=== PATIENT | female | born 1945 | race Caucasian/White ===

== ENCOUNTER 2020-08-28 07:46 | Outpatient (REF) | payer MEDICARE, SELFPAY ==
--- NOTE | 2020-08-28 07:51 | MM_ITS ---
EXAMINATION: MM SCREENING DIGITAL BREAST TOMOSYNTHESIS, BILATERAL CLINICAL INFORMATION: Screening. Asymptomatic. The lifetime risk of breast cancer based on the Tyrer-Cuzick Model is 2%. COMPARISON: Mammography: 08/23/2019, 07/26/2018, 07/03/2017 TECHNIQUE: Digital breast tomosynthesis is performed in both the craniocaudal and mediolateral oblique views along with computer-aided detection (CAD). Synthesized 2D images are generated from the tomosynthesis. FINDINGS: There are scattered areas of fibroglandular density (ACR BI-RADS breast composition Category b). There are no significant masses, abnormal calcifications, or other abnormalities. Parenchymal pattern is similar to prior exams. No developing density. No significant changes. IMPRESSION: No mammographic evidence of malignancy. ASSESSMENT: BI-RADS 1: Negative RECOMMENDATION: Routine annual mammography screening. This patient's information was entered into a reminder system with a target due date for their next mammogram.
== END 2020-08-28 07:47 | disposition home or self-care (01) ==
LOC: HO.MAMMO 07:46
PROVIDERS: PCP Internal Medicine; Visit Provider Internal Medicine
DX: Z12.31 Encounter for screening mammogram for malignant neoplasm of breast (principal)
CPT/HCPCS: 77063; 77067; 78014

== ENCOUNTER 2020-11-02 07:36 | Outpatient (REF) | payer MEDICARE, SELFPAY ==
[2020-11-02 10:54] LABS: Alanine Aminotransferase 22 U/L (0-31); Albumin Level 4.3 g/dL (3.5-5.0); Alkaline Phosphatase 66 U/L (39-117); Anion Gap 14 (12-20); Aspartate Amino Transferase 21 U/L (5-31); Bilirubin Total 0.4 mg/dL (0.0-1.0); Blood Urea Nitrogen 23 mg/dL (9-16); Calcium 8.8 mg/dL (8.4-10.2); Carbon Dioxide 26 mmol/L (22-29); Chloride 101 mmol/L (96-108); Cholesterol 181 mg/dL; Estimated Glomerular Filt Rate > 60; Glucose Fasting 109 mg/dL (60-99); HDL Cholesterol 45 mg/dL; LDL Cholesterol Calculated 90 mg/dl; Potassium 3.4 mmol/l (3.3-5.1); Sodium 138 mmol/L (135-145); Triglycerides 230 mg/dL
[2020-11-02 11:16] LABS: TSH reflex Free T4 1.47 mIU/mL (0.32-4.0)
== END 2020-11-02 07:37 | disposition home or self-care (01) ==
LOC: HO.10HDL 07:36
PROVIDERS: PCP Internal Medicine; Visit Provider Internal Medicine
DX: E78.00 Pure hypercholesterolemia, unspecified (principal); E55.9 Vitamin D deficiency, unspecified; E03.9 Hypothyroidism, unspecified
CPT/HCPCS: 80053; 80061; 82306; 84443

== ENCOUNTER 2020-12-23 | Outpatient (REF) | payer MEDICARE, SELFPAY | END 2020-12-23 00:01 | disposition home or self-care (01) | LOC: HO.VC | PROVIDERS: Visit Provider Internal Medicine | DX: Z23 Encounter for immunization (principal) | CPT/HCPCS: 0011A ==

== ENCOUNTER 2021-01-19 | Outpatient (REF) | payer MEDICARE, SELFPAY | END 2021-01-19 00:01 | disposition home or self-care (01) | LOC: HO.VC | PROVIDERS: Visit Provider Internal Medicine | DX: Z23 Encounter for immunization (principal) | CPT/HCPCS: 0012A ==

== ENCOUNTER 2021-05-18 07:31 | Outpatient (REF) | payer MEDICARE, SELFPAY ==
[2021-05-18 11:04] LABS: Alanine Aminotransferase 20 U/L (0-31); Albumin Level 4.4 g/dL (3.5-5.0); Alkaline Phosphatase 59 U/L (39-117); Anion Gap 13 (12-20); Aspartate Amino Transferase 23 U/L (5-31); Bilirubin Total 0.5 mg/dL (0.0-1.0); Blood Urea Nitrogen 20 mg/dL (9-16); Calcium 9.1 mg/dL (8.4-10.2); Carbon Dioxide 28 mmol/L (22-29); Chloride 103 mmol/L (96-108); Cholesterol 178 mg/dL; Estimated Glomerular Filt Rate > 60; Glucose Fasting 100 mg/dL (60-99); HDL Cholesterol 51 mg/dL; LDL Cholesterol Calculated 104 mg/dl; Potassium 3.8 mmol/L (3.3-5.1); Sodium 140 mmol/L (135-145); Triglycerides 118 mg/dL
== END 2021-05-18 07:32 | disposition home or self-care (01) ==
LOC: HO.10HDL 07:31
PROVIDERS: Visit Provider Internal Medicine
DX: E78.5 Hyperlipidemia, unspecified (principal); I10 Essential (primary) hypertension
CPT/HCPCS: 36415; 80053; 80061

== ENCOUNTER 2021-06-21 11:40 | Outpatient (REF) | payer MEDICARE, SELFPAY ==
--- NOTE | ~2021-06-21 | XR_ITS ---
EXAMINATION: XR CHEST CLINICAL INFORMATION: Cough COMPARISON: Previous chest and left rib x-rays January 2020 TECHNIQUE: 2 views of the chest were obtained. FINDINGS: The cardiac and mediastinal contours are normal. The lungs are clear. There is no pleural effusion or pneumothorax. There are degenerative changes of the spine. XR/XR chest 2V IMPRESSION: No evidence for acute disease in the chest.
== END 2021-06-21 11:41 | disposition home or self-care (01) ==
LOC: HO.XRAY 11:40
PROVIDERS: PCP Internal Medicine; Visit Provider Internal Medicine
DX: R05 Cough (principal)
CPT/HCPCS: 71046

== ENCOUNTER 2021-08-19 09:49 | Outpatient (REF) | payer MEDICARE, SELFPAY ==
--- NOTE | ~2021-08-19 | XR_ITS ---
EXAMINATION: XR ABDOMEN KUB CLINICAL INDICATION: Right flank pain. COMPARISON: None TECHNIQUE: AP view of the abdomen. FINDINGS: No convincing evidence of radiopaque calculus overlying the right kidney. There are numerous pelvic calcifications which may represent phleboliths. Because of this a distal ureteral calculus cannot be excluded. The bowel pattern is nonobstructing. Mild colonic stool. XR/XR KUB IMPRESSION: No radiopaque calculus is seen overlying the kidneys. Numerous pelvic calcifications are noted described above.
== END 2021-08-19 09:50 | disposition home or self-care (01) ==
LOC: HO.XRAY 09:49
PROVIDERS: PCP Internal Medicine; Visit Provider Internal Medicine
DX: N20.0 Calculus of kidney (principal)
CPT/HCPCS: 74018

== ENCOUNTER 2021-09-09 07:55 | Outpatient (REF) | payer MEDICARE, SELFPAY ==
--- NOTE | ~2021-09-09 | MM_ITS ---
EXAMINATION: MM SCREENING DIGITAL BREAST TOMOSYNTHESIS, BILATERAL CLINICAL INFORMATION: Screening. Asymptomatic. The lifetime risk of breast cancer based on the Tyrer-Cuzick Model is 3%. COMPARISON: Mammography: 08/28/2020, 08/23/2019, 07/26/2018, 07/03/2017 TECHNIQUE: Digital breast tomosynthesis is performed in both the craniocaudal and mediolateral oblique views along with computer-aided detection (CAD). Synthesized 2D images are generated from the tomosynthesis. FINDINGS: There are scattered areas of fibroglandular density (ACR BI-RADS breast composition Category b). Breast tissue composition borders on heterogeneously dense. There are scattered bilateral stable fibroglandular asymmetries. No developing density. No architectural abnormality or interval abnormal calcifications. The axilla are unremarkable. No significant changes. MM/MM tomosynthesis screening BI IMPRESSION: No significant changes from prior studies. ASSESSMENT: BI-RADS 2: Benign RECOMMENDATION: Routine annual mammography screening. This patient's information was entered into a reminder system with a target due date for their next mammogram.
== END 2021-09-09 07:56 | disposition home or self-care (01) ==
LOC: HO.MAMMO 07:55
PROVIDERS: Visit Provider Internal Medicine
DX: Z12.31 Encounter for screening mammogram for malignant neoplasm of breast (principal)
CPT/HCPCS: 77063; 77067

== ENCOUNTER 2021-09-28 08:05 | Outpatient (REF) | payer MEDICARE, SELFPAY ==
[2021-09-28 10:53] LABS: Free T4 (Free Thyroxine) 1.12 ng/dL (0.71-1.85); Thyroid Stimulating Hormone 1.09 uIU/mL (0.32-4.0)
== END 2021-09-28 08:06 | disposition home or self-care (01) ==
LOC: HO.10HDL 08:05
PROVIDERS: Visit Provider Nurse Practitioner Gerontology
DX: E03.9 Hypothyroidism, unspecified (principal)
CPT/HCPCS: 36415; 84439; 84443

== ENCOUNTER → 2021-10-07 14:11 | Outpatient (BNVA) | payer MEDICARE, SELFPAY | PROVIDERS: PCP Internal Medicine; Visit Provider Internal Medicine | DX: E03.9 Hypothyroidism, unspecified (principal); E04.2 Nontoxic multinodular goiter; E55.9 Vitamin D deficiency, unspecified | CPT/HCPCS: 99212 ==

== ENCOUNTER 2021-12-29 07:42 | Outpatient (REF) | payer MEDICARE, SELFPAY ==
[2021-12-29 12:37] LABS: Free T4 (Free Thyroxine) 1.11 ng/dL (0.71-1.85); Thyroid Stimulating Hormone 1.33 uIU/mL (0.32-4.0); Vitamin D 25-OH Total 40.1 ng/mL (>30)
[2021-12-29 13:02] LABS: Alanine Aminotransferase 21 U/L (0-31); Albumin Level 4.2 g/dL (3.5-5.0); Alkaline Phosphatase 68 U/L (39-117); Anion Gap 12 (12-20); Aspartate Amino Transferase 24 U/L (5-31); Bilirubin Total 1.2 mg/dL (0.0-1.0); Carbon Dioxide 29 mmol/L (22-29); Chloride 102 mmol/L (96-108); Cholesterol 169 mg/dL; Estimated Glomerular Filt Rate > 60; Glucose Fasting 106 mg/dL (60-99); HDL Cholesterol 42 mg/dL; LDL Cholesterol Calculated 98 mg/dl; Potassium 3.6 mmol/L (3.3-5.1); Sodium 139 mmol/L (135-145); Triglycerides 146 mg/dL
[2021-12-29 15:02] LABS: Blood Urea Nitrogen 15 mg/dL (9-16); Calcium 9.9 mg/dL (8.4-10.2)
== END 2021-12-29 07:43 | disposition home or self-care (01) ==
LOC: HO.10HDL 07:42
PROVIDERS: Absent Provider Internal Medicine; Visit Provider Internal Medicine
DX: E03.9 Hypothyroidism, unspecified (principal); E04.2 Nontoxic multinodular goiter; I10 Essential (primary) hypertension; E78.5 Hyperlipidemia, unspecified; E55.9 Vitamin D deficiency, unspecified
CPT/HCPCS: 36415; 80053; 80061; 82306; 84439; 84443

== ENCOUNTER 2022-02-09 15:06 | Outpatient (REF) | payer MEDICARE, SELFPAY ==
--- NOTE | ~2022-02-09 | US_ITS ---
EXAMINATION: US THYROID CLINICAL INFORMATION: Nontoxic multinodular goiter. COMPARISON: Thyroid ultrasound 07/22/2020 and 07/02/2019. Ultrasound biopsy thyroid FNA 01/04/2018. TECHNIQUE: Linear transducer grayscale and color Doppler examination with attention to the region of the thyroid. FINDINGS: SIZE: Measurements of the solitary right thyroid lobe and nodules are given in sagittal, anteroposterior and transverse dimensions respectively. Right Thyroid Lobe: 4.3 x 1.6 x 1.5 cm, volume 5.3 mL. Previously 5.0 x 2.0 x 1.3 cm, volume 6.6 mL. Parenchyma: The gland echotexture is heterogeneous. Thyroid vascularity is normal. Left Thyroid Lobe: Surgically absent. Isthmus: 0.5 cm in maximum AP dimension. Previously 0.5 cm. Estimated total number of nodules greater than or equal to 1 cm: 2. 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 Location: Right superior. Size: 1.1 x 0.5 x 0.6 cm, volume 0.2 mL. Previously: 1.1 x 1.1 x 1.0 cm, volume 0.6 mL. Nodule characteristics: Composition: Solid (2). Echogenicity: Isoechoic (1). Shape: Not taller than wide (0). Margins: Smooth (0). Echogenic Foci: None (0). ACR TI-RADS total points: 3 ACR TI-RADS category: 3 Significant change in size (>/= 20% in 2 dimensions and minimal increase of 2 mm or 50% or greater increase in volume): No. Decreased in size since 2019. Change in features: No Change in ACR TI-RADS risk category: No 2. Location: Right superior. Size: 0.5 x 0.5 x 0.7 cm, volume 0.1 mL. Previously: 0.6 x 0.8 x 0.6 cm, volume 0.2 mL. Nodule characteristics: Composition: Solid (2). Echogenicity: Isoechoic (1). Shape: Not taller than wide (0). Margins: Smooth (0). Echogenic Foci: None (0). ACR TI-RADS total points: 3 ACR TI-RADS category: 3 Significant change in size (>/= 20% in 2 dimensions and minimal increase of 2 mm or 50% or greater increase in volume): No Change in features: No Change in ACR TI-RADS risk category: No 3. Location: Right inferior. Size: 2.0 x 1.2 x 1.5 cm, volume 1.9 mL. Previously: 2.5 x 1.2 x 1.0 cm, volume 1.5 mL on 07/22/2020 and 2.0 x 1.5 x 1.5 cm on 07/02/2019.. Nodule characteristics: Composition: Solid (2). Echogenicity: Hypoechoic (2). Shape: Not taller than wide (0). Margins: Smooth (0). Echogenic Foci: None (0). ACR TI-RADS total points: 4 ACR TI-RADS category: 4 Significant change in size (>/= 20% in 2 dimensions and minimal increase of 2 mm or 50% or greater increase in volume): No Change in features: No Change in ACR TI-RADS risk category: No NODES: No lymphadenopathy is seen in the tissue surrounding the thyroid gland. US/US thyroid IMPRESSION: * There are 3 thyroid nodules, largest measuring 2.0 cm within the lower pole of the RIGHT thyroid gland is stable if not decreased in size since 2017, and previously biopsied 2016 and 2017. * There are no nodules meeting ACR criteria for FNA, or continued surveillance at this time. ACR TI-RADS RECOMMENDATION REFERENCE: Ultrasound-guided fine-needle aspiration, followup ultrasound, no further follow up. * TR1 (0 point) and TR 2 (2 points): No FNA or follow up * TR3 (3 points): FNA if more than or equal to 2.5 cm in maximum dimension, followup ultrasound in 1, 3 and 5 years if 1.5 to 2.4 cm in maximum dimension. * TR4 (4-6 points): FNA if more than or equal to 1.5 cm in maximum dimension, followup ultrasound in 1, 2, 3 and 5 years if 1 to 1.4 cm in maximum dimension. * TR5 (more than or equal to 7 points): FNA if more than or equal to 1 cm in maximum dimension, followup ultrasound every year for 5 years if 0.5 to 0.9 cm in maximum dimension. * TR3, TR4 or TR5 nodules that are below the size threshold for follow up receive no follow up.
== END 2022-02-09 15:07 | disposition home or self-care (01) ==
LOC: HO.US 15:06
PROVIDERS: Visit Provider Internal Medicine
DX: E04.2 Nontoxic multinodular goiter (principal)
CPT/HCPCS: 76536

== ENCOUNTER → 2022-04-14 08:21 | Outpatient (BNVA) | payer MEDICARE, SELFPAY | PROVIDERS: PCP Internal Medicine; Visit Provider Internal Medicine | DX: E03.9 Hypothyroidism, unspecified (principal); E04.2 Nontoxic multinodular goiter; E55.9 Vitamin D deficiency, unspecified | CPT/HCPCS: Q3014 ==

== ENCOUNTER 2022-05-10 07:32 | Outpatient (REF) | payer MEDICARE, SELFPAY ==
[2022-05-10 09:47] LABS: Free T4 (Free Thyroxine) 1.19 ng/dL (0.71-1.85); Vitamin D 25-OH Total 40.9 ng/mL (>30)
== END 2022-05-10 07:33 | disposition home or self-care (01) ==
LOC: HO.10HDL 07:32
PROVIDERS: Absent Provider Internal Medicine; Visit Provider Internal Medicine
DX: E03.9 Hypothyroidism, unspecified (principal); E04.2 Nontoxic multinodular goiter; E55.9 Vitamin D deficiency, unspecified
CPT/HCPCS: 36415; 82306; 84439; 84443

== ENCOUNTER → 2022-08-02 12:19 | Outpatient (BNVA) | payer MEDICARE, SELFPAY | PROVIDERS: PCP Internal Medicine; Visit Provider Orthopaedic Surgery | DX: G56.02 Carpal tunnel syndrome, left upper limb (principal); Z98.890 Other specified postprocedural states | CPT/HCPCS: 99202 ==

== ENCOUNTER 2022-08-08 10:13 | Day surgery (SDC) | payer MEDICARE, SELFPAY ==
[2022-08-08 11:15] VITALS: BMI 25.2
[2022-08-08 11:17] VITALS: BP 152/89; PULSE 89; RESP 16; TEMP 36.5; O2SAT 96
--- NOTE | 2022-08-08 13:19 | MHC.SHP ---
Pre-Procedural Eval Section A Date of Service: 08/08/22 The patient is an INPATIENT: No Changes since office visit: No Cold of Flu in the past 2 weeks, No New Medical Problems, No Changes in Medication and No Patient answered all questions The History & Physical has been completed within 30 days and I have reviewed it.: Yes Section B Chief Complaint: carpal tunnel Allergies: Allergies Allergy/AdvReac Type Severity Reaction Status Date / Time atropine [Lomotil] Allergy Intermediate vomiting Verified 08/02/22 12:37 codeine [CODEINE] Allergy Intermediate NAUSEA & Verified 08/02/22 12:37 VOMITING diphenoxylate [Lomotil] Allergy Intermediate vomiting Verified 08/02/22 12:37 Erythromycin Allergy Intermediate swelling, Verified 08/02/22 12:37 trouble breathing meperidine [From DEMEROL] Allergy Intermediate NAUSEA & Verified 05/12/22 14:59 VOMITING nabumetone Allergy Intermediate unknown Verified 08/02/22 12:37 oxycodone [Percocet] Allergy Intermediate vomiting Verified 08/02/22 12:37 Plan I have reviewed the history and physical and performed a pertinent physical examination on my patient. No changes have occurred unless specified.
--- NOTE | 2022-08-08 13:19 | W.PM.OPN ---
Operative Note Operative Note Date of Service: 08/08/22 Narrative: Preop diagnosis: 1. Left Carpal tunnel syndrome Postop diagnosis: same Procedure: 1. Left Carpal tunnel release Surgeon: Angelia Campbell MD Anesthesia: local block using 1% lidocaine with epinephrine Findings: Thickened transverse carpal ligament. EBL: Less than 5 mL Specimens: None Complications: None Disposition: Brought to recovery room in stable condition Plan: Follow-up for 10-14 days for wound check and suture removal Indications: The patient is a 76 years old, with left carpal tunnel syndrome that has been unresponsive to nonoperative management. The risks and benefits of operative treatment including but not limited to risk of damage to blood vessels, nerves, tendons, infection, persistent pain, persistent symptoms, or possible need for additional surgery were discussed with the patient and the patient wishes to proceed with surgery. Procedure: Once consent was obtained a local block was performed using a combination of 1% lidocaine with epinephrine. The patient was then brought back to the operating suite and placed on the operative table in supine position. A tourniquet was applied to the proximal aspect of the left upper extremity and the limb was prepped and draped in a standard surgical fashion. Once assured that we had a good block, a 2.0 cm longitudinal incision was made centered over the carpal tunnel. The incision was made through the skin to the subcutaneous tissues using a #15 blade. Dissection was made down to the level of the transverse carpal ligament with care being taken to protect the palmar cutaneous nerve. Once the transverse carpal ligament was clearly visualized, a longitudinal incision was made in the transverse carpal ligament 1st using a #15 blade, then using tenotomy scissors under direct visualization. Care was taken to look for and protect the motor branch of the median nerve when seen in this area. Once satisfied with our carpal tunnel release the wound was copiously irrigated with normal saline and hemostasis was obtained with a brief period of local pressure. The skin edges were reapproximated with some 5.0 nylon suture material and a sterile dressing was applied. The patient appears to have tolerated the procedure well and with no complications. All digits were well vascularized at the conclusion of the case.
== END 2022-08-08 13:37 | disposition home or self-care (01) ==
PROVIDERS: PCP Internal Medicine; Visit Provider Orthopaedic Surgery
PROC: (CPT 64721; principal; 2022-08-08 11:20)
DX: G56.02 Carpal tunnel syndrome, left upper limb (principal); M79.642 Pain in left hand; R20.0 Anesthesia of skin; I10 Essential (primary) hypertension; E03.9 Hypothyroidism, unspecified; E78.5 Hyperlipidemia, unspecified; Z79.899 Other long term (current) drug therapy; Z88.1 Allergy status to other antibiotic agents; Z88.8 Allergy status to other drugs, medicaments and biological substances; Z87.891 Personal history of nicotine dependence; Z98.890 Other specified postprocedural states
CPT/HCPCS: 64721; J0171

== ENCOUNTER → 2022-08-24 09:08 | Outpatient (BNVA) | payer MEDICARE, SELFPAY | PROVIDERS: PCP Internal Medicine; Visit Provider Orthopaedic Surgery | DX: Z09 Encounter for follow-up examination after completed treatment for conditions other than malignant neoplasm (principal); Z98.890 Other specified postprocedural states | CPT/HCPCS: 99212 ==

== ENCOUNTER 2022-09-12 09:50 | Outpatient (REF) | payer MEDICARE, SELFPAY ==
--- NOTE | ~2022-09-12 | US_ITS ---
EXAMINATION: US EXTRACRANIAL CAROTID DUPLEX, BILATERAL CLINICAL INFORMATION: Carotid stenosis COMPARISON: None TECHNIQUE: Real-time ultrasound and Doppler techniques (integrating B-mode 2-D vascular images, Doppler spectral analysis and color-flow Doppler imaging) were utilized to interrogate the extracranial carotid arteries, the vertebral arteries and proximal subclavian arteries bilaterally. The degree of stenosis is determined by criteria similar to NASCET. FINDINGS: Right Side: 1. There is no significant atherosclerotic plaque seen in the bifurcation/proximal ICA region. 2. The common carotid artery PSV proximally is 109 cm/s and distally 94.6 cm/s. 3. The proximal internal carotid artery velocities are 71.3 cm/s systolic and 25.8 cm/s diastolic. 4. The proximal external carotid artery PSV is 114 cm/s. 5. The vertebral artery shows antegrade flow. 6. The subclavian artery waveforms are normal. Left Side: 1. There is minimal atherosclerotic plaque seen in the bifurcation/proximal ICA region. 2. The common carotid artery PSV proximally is 122 cm/s and distally 88.2 cm/s. 3. The proximal internal carotid artery velocities are 78.5 cm/s systolic and 23.6 cm/s diastolic. 4. The proximal external carotid artery PSV is 96.4 cm/s. 5. The vertebral artery shows antegrade flow. 6. The subclavian artery waveforms are normal. US/US carotid duplex BI IMPRESSION: 1. RIGHT: Normal right internal carotid artery without atherosclerotic plaque or hemodynamically significant stenosis. 2. LEFT: Minimal, non-hemodynamically significant stenosis of the proximal left internal carotid artery corresponding to a 0-49% stenosis by velocity criteria.
== END 2022-09-12 09:51 | disposition home or self-care (01) ==
LOC: HO.US 09:50
PROVIDERS: Visit Provider Psychiatry & Neurology Neurology
DX: E04.2 Nontoxic multinodular goiter (principal); I67.89 Other cerebrovascular disease
CPT/HCPCS: 93880

== ENCOUNTER 2022-09-15 07:51 | Outpatient (REF) | payer MEDICARE, SELFPAY ==
--- NOTE | ~2022-09-15 | MM_ITS ---
EXAMINATION: MM SCREENING DIGITAL BREAST TOMOSYNTHESIS, BILATERAL CLINICAL INFORMATION: Screening. Asymptomatic. The lifetime risk of breast cancer based on the Tyrer-Cuzick Model is 2%. COMPARISON: Mammography: September 09, 2021 and studies dating back to June 29, 2016 TECHNIQUE: Digital breast tomosynthesis is performed in both the craniocaudal and mediolateral oblique views along with computer-aided detection (CAD). Synthesized 2D images are generated from the tomosynthesis. FINDINGS: There are scattered areas of fibroglandular density (ACR BI-RADS breast composition Category b). There are no significant masses, abnormal calcifications, or other abnormalities. MM/MM tomosynthesis screening BI IMPRESSION: No significant changes ASSESSMENT: BI-RADS 1: Negative RECOMMENDATION: Routine annual mammography screening. This patient's information was entered into a reminder system with a target due date for their next mammogram.
== END 2022-09-15 07:52 | disposition home or self-care (01) ==
LOC: HO.MAMMO 07:51
PROVIDERS: PCP Internal Medicine; Visit Provider Internal Medicine
DX: Z12.31 Encounter for screening mammogram for malignant neoplasm of breast (principal)
CPT/HCPCS: 77063; 77067

== ENCOUNTER 2022-11-28 08:52 | Outpatient (REF) | payer MEDICARE, SELFPAY ==
--- NOTE | ~2022-11-28 | XR_ITS ---
EXAMINATION: XR THORACOLUMBAR SPINE CLINICAL INFORMATION: Mid back pain COMPARISON: None TECHNIQUE: 3 views. FINDINGS: There is normal thoracic kyphosis. The vertebral heights, alignment and disc heights are normal. No visible acute fracture, dislocation or lytic process seen. Vertical striations are visualized, L1 vertebra likely hemangioma. There is mild ventral spondylosis mid dorsal spine. The paravertebral soft tissues are normal. XR/XR thoracic spine 2V IMPRESSION: Mild ventral dorsal spine spondylosis. Otherwise unremarkable.
[2022-11-28 09:55] LABS: Alanine Aminotransferase 19 U/L (0-31); Albumin Level 4.4 g/dL (3.5-5.0); Alkaline Phosphatase 67 U/L (39-117); Anion Gap 12 (12-20); Aspartate Amino Transferase 27 U/L (5-31); Bilirubin Total 0.7 mg/dL (0.0-1.0); Blood Urea Nitrogen 18 mg/dL (9-16); Calcium 9.8 mg/dL (8.4-10.2); Carbon Dioxide 29 mmol/L (22-29); Chloride 103 mmol/L (96-108); Cholesterol 182 mg/dL; Estimated Glomerular Filt Rate > 60; Glucose Fasting 96 mg/dL (60-99); HDL Cholesterol 48 mg/dL; LDL Cholesterol Calculated 97 mg/dl; Potassium 3.9 mmol/L (3.3-5.1); Sodium 140 mmol/L (135-145); Total Protein 7.2 g/dL (6.5-8.0); Triglycerides 186 mg/dL
[2022-11-28 10:14] LABS: Vitamin D 25-OH Total 44.3 ng/mL (>30)
== END 2022-11-28 08:53 | disposition home or self-care (01) ==
LOC: HO.LAB 08:52
PROVIDERS: PCP Internal Medicine; Visit Provider Internal Medicine
DX: M54.6 Pain in thoracic spine (principal); E55.9 Vitamin D deficiency, unspecified; E03.9 Hypothyroidism, unspecified; E78.5 Hyperlipidemia, unspecified
CPT/HCPCS: 36415; 72070; 80053; 80061; 82306; 84443

== ENCOUNTER 2023-02-20 07:58 | Outpatient (REF) | payer MEDICARE, SELFPAY ==
--- NOTE | ~2023-02-20 | US_ITS ---
EXAMINATION: US THYROID CLINICAL INFORMATION: Nontoxic multinodular goiter. COMPARISON: Ultrasound soft tissue head/neck thyroid dated 02/09/2022 and 07/22/2020. Reports and images from prior ultrasounds, most recent July 2020. January 2022 images are not available for comparison at this time. TECHNIQUE: Linear transducer grayscale and color Doppler examination with attention to the region of the thyroid. FINDINGS: SIZE: Measurements of the solitary right thyroid lobe and nodules are given in sagittal, anteroposterior and transverse dimensions respectively. Right Thyroid Lobe: 3.4 x 1.7 x 1.5 cm, volume 4.6 mL. Previously 4.3 x 1.6 x 1.5 cm, volume 5.3 mL. Parenchyma: The gland echotexture is homogeneous. Thyroid vascularity is normal. Left Thyroid Lobe: Surgically absent. Isthmus: Not seen. Previously 0.5 cm. Estimated total number of nodules greater than or equal to 1 cm: 1. 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 Location: Right mid. Size: 0.7 x 0.5 x 0.6 cm, volume 0.1 mL. Previously: 0.6 x 0.5 x 0.7 cm, volume 0.1 mL. Nodule characteristics: Composition: Solid (2). Echogenicity: Isoechoic (1). Shape: Not taller than wide (0). Margins: Smooth (0). Echogenic Foci: None (0). ACR TI-RADS total points: 3 Previous: 3 ACR TI-RADS category: 3 Previous: 3 Significant change in size (>/= 20% in 2 dimensions and minimal increase of 2 mm or 50% or greater increase in volume): No Change in features: No Change in ACR TI-RADS risk category: No 2. Location: Right mid. Size: 1.1 x 0.7 x 0.8 cm, volume 0.4 mL. Previously: 1.1 x 0.5 x 0.6 cm, volume 0.2 mL. Nodule characteristics: Composition: Solid (2). Echogenicity: Hyperechoic (1). Shape: Not taller than wide (0). Margins: Smooth (0). Echogenic Foci: None (0). ACR TI-RADS total points: 3 Previous: 3 ACR TI-RADS category: 3 Previous: 3 Significant change in size (>/= 20% in 2 dimensions and minimal increase of 2 mm or 50% or greater increase in volume): No Change in features: No Change in ACR TI-RADS risk category: No 3. 3. Location: Right inferior. Size: 1.8 x 2.2 x 1.5 cm, volume 1.9 mL. Previously: 2 x 1.2 x 1.5 cm. nodule characteristics: Composition: Solid (2). Echogenicity: Hypoechoic (2). Shape: Not taller than wide (0). Margins: Smooth (0). Echogenic Foci: None (0). ACR TI-RADS total points: 4 ACR TI-RADS category: 4 It is uncertain whether this represents an exophytic thyroid nodule or could represent a parathyroid adenoma. This does not appear changed and has reportedly been previously biopsied. NODES: No lymphadenopathy is seen in the tissue surrounding the thyroid gland. US/US thyroid IMPRESSION: Stable right thyroid nodules. According to TI-RADS criteria, no ultrasound follow up for fine-needle aspiration recommended. ACR TI-RADS RECOMMENDATION REFERENCE: Ultrasound-guided fine-needle aspiration, followup ultrasound, no further follow up. * TR1 (0 point) and TR2 (2 points): No FNA or follow up * TR3 (3 points): FNA if more than or equal to 2.5 cm in maximum dimension, followup ultrasound in 1, 3 and 5 years if 1.5 to 2.4 cm in maximum dimension. * TR4 (4-6 points): FNA if more than or equal to 1.5 cm in maximum dimension, followup ultrasound in 1, 2, 3 and 5 years if 1 to 1.4 cm in maximum dimension. * TR5 (more than or equal to 7 points): FNA if more than or equal to 1 cm in maximum dimension, followup ultrasound every year for 5 years if 0.5 to 0.9 cm in maximum dimension. * TR3, TR4 or TR5 nodules that are below the size threshold for follow up receive no follow up.
== END 2023-02-20 07:59 | disposition home or self-care (01) ==
LOC: HO.US 07:58
PROVIDERS: Visit Provider Internal Medicine
DX: E04.2 Nontoxic multinodular goiter (principal)
CPT/HCPCS: 76536

== ENCOUNTER 2023-02-21 07:13 | Outpatient (REF) | payer MEDICARE, SELFPAY ==
[2023-02-21 08:14] LABS: Alanine Aminotransferase 18 U/L (0-31); Albumin Level 4.2 g/dL (3.5-5.0); Alkaline Phosphatase 66 U/L (39-117); Anion Gap 11 (12-20); Aspartate Amino Transferase 26 U/L (5-31); Blood Urea Nitrogen 19 mg/dL (9-16); Calcium 9.2 mg/dL (8.4-10.2); Carbon Dioxide 30 mmol/L (22-29); Chloride 102 mmol/L (96-108); Cholesterol 181 mg/dL; Estimated Glomerular Filt Rate > 60; Glucose Fasting 106 mg/dL (60-99); HDL Cholesterol 48 mg/dL; LDL Cholesterol Calculated 111 mg/dl; Potassium 3.8 mmol/L (3.3-5.1); Sodium 139 mmol/L (135-145); Total Protein 6.8 g/dL (6.5-8.0); Triglycerides 110 mg/dL
[2023-02-21 08:31] LABS: Thyroid Stimulating Hormone 2.25 uIU/mL (0.32-4.0); Vitamin D 25-OH Total 50.9 ng/mL (>30)
== END 2023-02-21 07:14 | disposition home or self-care (01) ==
LOC: HO.LAB 07:13
PROVIDERS: PCP Internal Medicine; Visit Provider Internal Medicine
DX: E55.9 Vitamin D deficiency, unspecified (principal); E04.2 Nontoxic multinodular goiter; E78.5 Hyperlipidemia, unspecified
CPT/HCPCS: 36415; 80053; 80061; 82306; 84443

== ENCOUNTER → 2023-04-10 10:20 | Outpatient (BNVA) | payer MEDICARE, SELFPAY | PROVIDERS: PCP Internal Medicine; Visit Provider Internal Medicine | DX: E04.2 Nontoxic multinodular goiter (principal); E03.9 Hypothyroidism, unspecified; Z79.899 Other long term (current) drug therapy | CPT/HCPCS: 99212 ==

== ENCOUNTER 2023-04-24 15:09 | Outpatient (REF) | payer MEDICARE, SELFPAY ==
--- NOTE | ~2023-04-24 | XR_ITS ---
EXAMINATION: XR HIP, LEFT CLINICAL INFORMATION: Pain COMPARISON: None available. TECHNIQUE: Two views of the left hip. One view of the pelvis. FINDINGS: No acute fracture or dislocation. Mild degenerative changes of the hips with subchondral cystic change and degenerative spurring. Calcified phleboliths in the pelvis. Sacroiliac joint spaces are maintained. Moderate degenerative changes of the pubic symphysis with loss of joint space and subchondral sclerosis. XR/XR hip LT w PEL1V IMPRESSION: Mild degenerative changes of the hips. Moderate degenerative changes of the pubic symphysis.
== END 2023-04-24 15:10 | disposition home or self-care (01) ==
LOC: HO.XRAY 15:09
PROVIDERS: Visit Provider Nurse Practitioner Family
DX: M25.552 Pain in left hip (principal)
CPT/HCPCS: 73502

== ENCOUNTER 2023-08-29 07:36 | Outpatient (REF) | payer MEDICARE, SELFPAY | END 2023-08-29 07:37 | disposition home or self-care (01) | LOC: HO.10HDL 07:36 | PROVIDERS: Visit Provider Internal Medicine | DX: E04.2 Nontoxic multinodular goiter (principal); E78.5 Hyperlipidemia, unspecified; E55.9 Vitamin D deficiency, unspecified | CPT/HCPCS: 36415; 80053; 80061; 82306; 84443 ==

== ENCOUNTER 2023-08-30 07:48 | Outpatient (AMB) | payer MEDICARE, SELFPAY ==
--- NOTE | 2023-08-30 07:50 | MHC.PC.OV ---
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 Accompanied by: Self / Same As Patient Allergies acetaminophen [From Percocet] Allergy (Intermediate, Verified 08/30/23 08:09) Vomiting atropine [From Lomotil] Allergy (Intermediate, Verified 08/30/23 08:09) Vomiting codeine [CODEINE] Allergy (Intermediate, Verified 08/30/23 08:09) Nausea and Vomiting diphenoxylate [From Lomotil] Allergy (Intermediate, Verified 08/30/23 08:09) Vomiting erythromycin base Allergy (Intermediate, Verified 08/30/23 08:09) Swelling, Trouble breathing meperidine [From Demerol] Allergy (Intermediate, Verified 08/30/23 08:09) Nausea and Vomiting nabumetone Allergy (Intermediate, Verified 08/30/23 08:09) Unknown oxycodone [From Percocet] Allergy (Intermediate, Verified 08/30/23 08:09) Vomiting Medication List - Last Reconciled 08/30/23 by Lauren Dykes MD ascorbate calcium (vitamin C) 1 g PO Q6H aspirin 81 mg PO DAILY atorvastatin 40 mg PO BEDTIME 90 days gabapentin 100 mg PO BEDTIME 30 days hydrochlorothiazide 12.5 mg PO DAILY 90 days levothyroxine 75 mcg PO DAILY multivitamin 1 tab PO DAILY omega-3 fatty acids (Fish Oil Concentrate) 1,000 mg PO DAILY vitamin B complex 1 cap PO DAILY Tobacco use date assessed: 04/24/23 Fall risk assessment: No Falls in past year Last assessed Fall Risk: 08/30/23 Dental Screening Dental Screen Date: 08/30/23 Did you have a dental visit in the last 12 months?: Yes Did you have a dental problem in the last 6 months where you did not have access to dental care?: No Was dental information given to patient?: Patient has dentist HPI HPI Comments History of Present Illness Details This is a 77-year-old female with hypertension, hypothyroidism, dyslipidemia and impaired glucose tolerance that comes today for follow-up on recent labs. Blood pressure stable. TSH within normal limits. Cholesterol well control. Blood glucose has mildly worsened and was advised to do with low-carbohydrate diet. Labs will be repeated in 6 months. No chest pain or shortness of breath. [facility] Medical History (Updated 08/30/23 @ 08:21 by Lauren Dykes MD) Vitamin D deficiency Multinodular thyroid Renal calculi Dyslipidemia Hypothyroidism Skin lesion Mass of right foot Essential hypertension Surgical History History of thyroidectomy, subtotal S/P thyroid biopsy History of breast biopsy History of carpal tunnel release History of tonsillectomy History of appendectomy Family History Father Stomach cancer CVD (cardiovascular disease) Mother Leukemia Mental health disorder Brother AIDS Paternal Grandmother Diabetes Brother No problems noted. Brother No problems noted. Son No problems noted. Daughter No problems noted. Social History Housing: House Alcohol intake: current Alcohol intake frequency: a few times a week Alcohol type: hard liquor Patient Tobacco Use Status: Former Tobacco user Tobacco use type: Cigarette e-Cigarette/Vaping Use: Never Used Second Hand Smoke Exposure: No service: No Current occupational status: retired Cognitive needs: No Hearing needs: No Vision needs: Yes Questionnaire Thrive Questionnaire Date Thrive assessed: 04/24/23 ROD-7 AMB Questionnaire ROD-7 Date ROD - 7 assessed: 04/24/23 Source: Developed by Drs. Tre Pfeiffer, Adelaide Michele, Satish Gonzales and colleagues, with an educational eleni from [employer]. Review of Systems Const All systems reviewed & are unremarkable except as noted in HPI and below Eyes Reports no additional complaints, Denies change in vision and Denies other visual disturbances Card Denies chest pain at rest, Denies chest pain with activity, Denies edema, Denies irregular heart rhythm, Denies claudication, Denies dyspnea, Denies dyspnea on exertion, Denies orthopnea, Denies paroxysmal nocturnal dyspnea and Denies slow heart rate Resp Denies cough, Denies dyspnea and Denies dyspnea on exertion GI Denies abdominal pain, Denies change in bowel habits, Denies excessive flatus, Denies nausea and Denies vomiting Denies urinary incontinence, Denies urinary hesitancy and Denies urinary urgency Musc Denies abnormal gait, Denies atrophy, Denies deformity and Denies limited range of motion Skin/Breast Denies bleeding lesions, Denies changing lesions and Denies rash Neuro Denies abnormal gait and Denies lack of coordination Physical exam (Primary Care) Vital Signs: Last Vital Signs BP 138/60 08/30/23 07:51 BMI result Body Mass Index 26.4 Tobacco/Smoking Status: Tobacco use Status Tobacco use date assessed 04/24/23 08/30/23 07:55 Patient Tobacco Use Status Former Tobacco user 08/30/23 07:55 Tobacco use type Cigarette 08/30/23 07:55 e-Cigarette/Vaping Use Never Used 08/30/23 07:55 Thrive Assessment: Date of Thrive Assessment Date Thrive assessed 04/24/23 08/30/23 07:55 Eyes General: appearance normal, both eyes and all related structures Eyelids: Yes eyelids normal Conjunctivae: conjunctivae normal Neck Neck: Yes normal visual inspection and Yes supple Resp Effort & Inspection: normal respiratory effort Auscultation: clear to auscultation bilaterally Cardio Jugular venous distension: no JVD Rate: regular rate Rhythm: regular rhythm Heart sounds: S1 normal heart sound present and S2 normal heart sound present Extrem General: Yes full ROM Assessment and Plan Assessment & Plan (1) Essential hypertension: Code(s): I10 - Essential (primary) hypertension Plan: Continue hydrochlorothiazide. Blood pressure goal is equal or less than 130/80. (2) Hypothyroidism: Code(s): E03.9 - Hypothyroidism, unspecified Qualifiers: Hypothyroidism type: acquired Qualified Code(s): E03.9 - Hypothyroidism, unspecified Plan: Continue levothyroxine. (3) Dyslipidemia: Code(s): E78.5 - Hyperlipidemia, unspecified Plan: Continue statins. (4) Impaired glucose tolerance: Code(s): R73.02 - Impaired glucose tolerance (oral) Plan: Start low-carbohydrate diet. Repeat fasting blood glucose in 6 months. Orders: Orders Lipid Panel 6 Months E78.5 - Hyperlipidemia, unspecified Comprehensive [place]. Panel Fast 6 Months I10 - Essential (primary) hypertension Vitamin D 25-OH Total 6 Months E55.9 - Vitamin D deficiency, unspecified Thyroid Stimulating Hormone 6 Months E04.2 - Nontoxic multinodular goiter Coding Level of Care Code Est Pt Level 4 (88288) Diagnoses Essential hypertension I10 Acquired hypothyroidism E03.9 Hypothyroidism type: acquired Dyslipidemia E78.5 Impaired glucose tolerance R73.02 Time Spent (min) 23
[2023-08-30 07:51] VITALS: BP 138/60; PULSE 87; BMI 26.4
== END 2023-08-30 08:19 | disposition home or self-care (01) ==
PROVIDERS: Visit Provider Internal Medicine
DX: I10 Essential (primary) hypertension (principal); E03.9 Hypothyroidism, unspecified; E78.5 Hyperlipidemia, unspecified; R73.02 Impaired glucose tolerance (oral)
CPT/HCPCS: 99214

== ENCOUNTER 2023-09-18 07:39 | Outpatient (REF) | payer MEDICARE, SELFPAY ==
--- NOTE | ~2023-09-18 | MM_ITS ---
EXAMINATION: MM SCREENING DIGITAL BREAST TOMOSYNTHESIS, BILATERAL CLINICAL INFORMATION: Screening. Asymptomatic. The patient is status post right breast excision for benign disease. COMPARISON: Mammography: This study is compared with prior exams dating back to 2017. TECHNIQUE: Digital breast tomosynthesis is performed in both the craniocaudal and mediolateral oblique views along with computer-aided detection (CAD). Synthesized 2D images are generated from the tomosynthesis. FINDINGS: There are scattered areas of fibroglandular density (ACR BI-RADS breast composition Category b). There are no significant masses, abnormal calcifications, or other abnormalities. MM/MM tomosynthesis screening BI IMPRESSION: No mammographic evidence of malignancy. ASSESSMENT: BI-RADS BI-RADS 1 - Negative RECOMMENDATION: Routine annual mammography screening. 1 year F/U This examination should not preclude the clinical evaluation of a suspicious palpable abnormality. This patient's information was entered into a reminder system with a target due date for their next mammogram.
== END 2023-09-18 07:40 | disposition home or self-care (01) ==
LOC: HO.MAMMO 07:39
PROVIDERS: PCP Internal Medicine; Visit Provider Internal Medicine
DX: Z12.31 Encounter for screening mammogram for malignant neoplasm of breast (principal)
CPT/HCPCS: 77063; 77067

== ENCOUNTER → 2023-09-18 07:45 | Outpatient (BNV) | payer MEDICARE, SELFPAY | PROVIDERS: PCP Internal Medicine; Visit Provider Radiology Diagnostic Radiology | DX: Z12.31 Encounter for screening mammogram for malignant neoplasm of breast (principal) | CPT/HCPCS: 77063; 77067 ==

== ENCOUNTER 2024-01-22 13:15 | Outpatient (REF) | payer MEDICARE, SELFPAY ==
--- NOTE | ~2024-01-22 | US_ITS ---
EXAMINATION: US THYROID CLINICAL INFORMATION: Nontoxic multinodular goiter. COMPARISON: Ultrasound soft tissue head/neck thyroid dated 02/20/2023 and 02/09/2022. TECHNIQUE: Linear transducer grayscale and color Doppler examination with attention to the region of the thyroid. FINDINGS: SIZE: Measurements of the solitary right thyroid lobe and nodules are given in sagittal, anteroposterior and transverse dimensions respectively. Right Thyroid Lobe: 3.8 x 1.9 x 1.5 cm, volume 5.8 mL. Previously 3.4 x 1.7 x 1.5 cm, volume 4.6 mL. Parenchyma: The gland echotexture is heterogeneous. Thyroid vascularity is normal. Left Thyroid Lobe: Surgically absent. Isthmus: 0.5 cm in maximum AP dimension. Previously not seen. Estimated total number of nodules greater than or equal to 1 cm: 1. Manager Ent nodules are described as follows: 1. Location: Right superior/mid. Size: 1.0 x 0.8 x 0.7 cm, volume 0.3 mL. Previously: 1.1 x 0.7 x 0.8 cm, volume 0.2 mL. Nodule characteristics: Composition: Solid (2). Echogenicity: Hyperechoic (1). Shape: Not taller than wide (0). Margins: Smooth (0). Echogenic Foci: None (0). ACR TI-RADS total points: 3 Previous: 3 ACR TI-RADS category: 3 Previous: 3 Significant change in size (>/= 20% in 2 dimensions and minimal increase of 2 mm or 50% or greater increase in volume): No Change in features: No Change in ACR TI-RADS risk category: No 2. Location: Right superior/mid. Size: 0.6 x 0.6 x 0.4 cm, volume 0.1 mL. Previously: 0.7 x 0.5 x 0.7 cm, volume 0.1 mL. Nodule characteristics: Composition: Solid (2). Echogenicity: Isoechoic (1). Shape: Not taller than wide (0). Margins: Smooth (0). Echogenic Foci: None (0). ACR TI-RADS total points: 3 Previous: 3 ACR TI-RADS category: 3 Previous: 3 Significant change in size (>/= 20% in 2 dimensions and minimal increase of 2 mm or 50% or greater increase in volume): No Change in features: No Change in ACR TI-RADS risk category: No NODES: No lymphadenopathy is seen in the tissue surrounding the thyroid gland. ADDITIONAL FINDINGS: 1.3 x 1.1 x 1.3 cm Solid hypoechoic lesion along the lower pole of the right lobe of the thyroid gland previously measured 1.8 x 2.2 x 1.5 cm. There is not clearly visualized, has ill-defined borders,? Exophytic nodule versus a parathyroid adenoma. This has been previously biopsied. If this is a nodule, it would be TR 4. . US/US thyroid IMPRESSION: 1. Prior left lobectomy. 2. No change in 1.0 cm and 0.6 cm nodules in the right lobe, TR 3. No follow-up imaging of these nodules is recommended. 3. 1.3 cm solid hypoechoic lesion along the lower pole of the right lobe,? Exophytic nodule versus a parathyroid adenoma. This is ill-defined and not well seen. This has been previously biopsied. This is has been seen dating back to 07/04/2017. No imaging follow-up is recommended. ACR TI-RADS RECOMMENDATION REFERENCE: Ultrasound-guided fine-needle aspiration, follow up ultrasound, no further followup. * TR1 (0 point) and TR2 (2 points): No FNA or followup * TR3 (3 points): FNA if more than or equal to 2.5 cm in maximum dimension, follow up ultrasound in 1, 3 and 5 years if 1.5 to 2.4 cm in maximum dimension. * TR4 (4-6 points): FNA if more than or equal to 1.5 cm in maximum dimension, follow up ultrasound in 1, 2, 3 and 5 years if 1 to 1.4 cm in maximum dimension. * TR5 (more than or equal to 7 points): FNA if more than or equal to 1 cm in maximum dimension, follow up ultrasound every year for 5 years if 0.5 to 0.9 cm in maximum dimension. * TR3, TR4 or TR5 nodules that are below the size threshold for follow up receive no followup.
== END 2024-01-22 13:16 | disposition home or self-care (01) ==
LOC: HO.US 13:15
PROVIDERS: PCP Internal Medicine; Visit Provider Internal Medicine Endocrinology, Diabetes & Metabolism
DX: E04.2 Nontoxic multinodular goiter (principal)
CPT/HCPCS: 76536

== ENCOUNTER 2024-02-27 07:50 | Outpatient (REF) | payer MEDICARE, SELFPAY ==
[2024-02-27 09:45] LABS: Alanine Aminotransferase 26 U/L (0-31); Albumin Level 4.5 g/dL (3.5-5.0); Alkaline Phosphatase 64 U/L (39-117); Anion Gap 13 (12-20); Aspartate Amino Transferase 29 U/L (5-31); Bilirubin Total 0.9 mg/dL (0.0-1.0); Blood Urea Nitrogen 19 mg/dL (9-16); Calcium 9.4 mg/dL (8.4-10.2); Carbon Dioxide 29 mmol/L (22-29); Chloride 103 mmol/L (96-108); Cholesterol 189 mg/dL (<200); Estimated Glomerular Filt Rate > 60; Glucose Fasting 114 mg/dL (60-99); HDL Cholesterol 54 mg/dL (>40); LDL Cholesterol Calculated 116 mg/dL (<100); Potassium 3.8 mmol/L (3.3-5.1); Sodium 141 mmol/L (135-145); Total Protein 7.6 g/dL (6.5-8.0); Triglycerides 97 mg/dL (<150)
[2024-02-27 10:03] LABS: Thyroid Stimulating Hormone 0.99 uIU/mL (0.32-4.0); Vitamin D 25-OH Total 48.6 ng/mL (>30)
== END 2024-02-27 07:51 | disposition home or self-care (01) ==
LOC: HO.LAB 07:50
PROVIDERS: PCP Internal Medicine; Visit Provider Internal Medicine
DX: E78.5 Hyperlipidemia, unspecified (principal); I10 Essential (primary) hypertension; E04.2 Nontoxic multinodular goiter; E55.9 Vitamin D deficiency, unspecified
CPT/HCPCS: 36415; 80053; 80061; 82306; 84443

== ENCOUNTER 2024-02-29 12:20 | Outpatient (AMB) | payer MEDICARE, SELFPAY ==
[2024-02-29 12:30] VITALS: BP 130/72; BMI 26.0
--- NOTE | 2024-02-29 12:30 | A.OFFPC_ITS ---
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 Accompanied by: Self / Same As Patient Allergies acetaminophen [From Percocet] Allergy (Intermediate, Verified 02/29/24 12:31) Vomiting atropine [From Lomotil] Allergy (Intermediate, Verified 02/29/24 12:31) Vomiting codeine [CODEINE] Allergy (Intermediate, Verified 02/29/24 12:31) Nausea and Vomiting diphenoxylate [From Lomotil] Allergy (Intermediate, Verified 02/29/24 12:31) Vomiting erythromycin base Allergy (Intermediate, Verified 02/29/24 12:31) Swelling, Trouble breathing meperidine [From Demerol] Allergy (Intermediate, Verified 02/29/24 12:31) Nausea and Vomiting nabumetone Allergy (Intermediate, Verified 02/29/24 12:31) Unknown oxycodone [From Percocet] Allergy (Intermediate, Verified 02/29/24 12:31) Vomiting Tobacco use date assessed: 02/29/24 Fall risk assessment: No Falls in past year Last assessed Fall Risk: 02/29/24 Dental Screening Dental Screen Date: 02/29/24 Did you have a dental visit in the last 12 months?: Yes Did you have a dental problem in the last 6 months where you did not have access to dental care?: No Was dental information given to patient?: Patient has dentist HPI HPI Comments History of Present Illness Details This is an 78-year-old female with hypertension, hypothyroidism, dyslipidemia and impaired glucose tolerance that comes today for follow-up on her conditions. Blood pressure stable. TSH normal. Cholesterol well controlled with statins. Fasting blood glucose have been about the same and she was advised to do a low-carbohydrate diet. Complains of a tingling sensation of that occasionally happens in the left leg and right arm. No chest pain or shortness of breath. No numbness. No weakness. She also has left ear discomfort and will be referred to ENT. [facility] Medical History (Updated 02/29/24 @ 13:04 by Lauren Dykes MD) Vitamin D deficiency Multinodular thyroid Renal calculi Dyslipidemia Hypothyroidism Skin lesion Mass of right foot Essential hypertension Surgical History History of thyroidectomy, subtotal S/P thyroid biopsy History of breast biopsy History of carpal tunnel release History of tonsillectomy History of appendectomy Family History Father Stomach cancer CVD (cardiovascular disease) Mother Leukemia Mental health disorder Brother AIDS Paternal Grandmother Diabetes Brother No problems noted. Brother No problems noted. Son No problems noted. Daughter No problems noted. Social History Housing: House Alcohol intake: current Alcohol intake frequency: a few times a week Alcohol type: hard liquor Patient Tobacco Use Status: Former Tobacco user Tobacco use type: Cigarette e-Cigarette/Vaping Use: Never Used Second Hand Smoke Exposure: No service: No Current occupational status: retired Cognitive needs: No Hearing needs: No Vision needs: Yes Questionnaire PHQ-9 Over the last 2 weeks, how often have you been bothered by any of the following problems? 1. Little interest or pleasure in doing things: not at all 2. Feeling down, depressed, or hopeless: not at all 3. Trouble falling or staying asleep, or sleeping too much: not at all 4. Feeling tired or having little energy: not at all 5. Poor appetite or overeating: not at all 6. Feeling bad about yourself - or that you are a failure or have let yourself or your family down: not at all 7. Trouble concentrating on things, such as reading the newspaper or watching television: not at all 8. Moving or speaking so slowly that other people could have noticed. Or the opposite - being so fidgety or restless that you have been moving around a lot more than usual: not at all 9. Thoughts that you would be better off or of hurting yourself in some way: not at all Total score: 0 Depression Screening Interpretation: Negative Depression Screening Done: Yes [id number] - PHQ-9 Billing: Yes Source: Developed by Drs. Tre Pfeiffer, Adelaide Michele, Satish Gonzales and colleagues, with an educational eleni from [employer] Thrive Questionnaire Date Thrive assessed: 02/29/24 I am a: Patient What is your living situation today?: I have a steady place to live Within the past 12 months, did the food you bought not last and you didn't have the money to get more?: Never true Within the past 12 months, did you worry whether your food would run out before you got money to buy more?: Never true Do you have trouble paying for medicines?: No Do you have trouble getting transportation to medical appointments?: No Do you have trouble paying your heating and electricity bill?: No Do you have trouble taking care of your child, family member or friend?: No Do you have trouble with day-to-day activities such as bathing, preparing meals, shopping, managing finances, etc.?: No Are you currently unemployed and looking for a job?: No Are you interested in more education?: No Please select the resources that you would like help with: None Currently or been in a relationship where the following occur: no concerns reported THRIVE Score: 0 AUDIT C Alcohol Use Questionnaire (AUDIT-C) 1. How often do you have a drink containing alcohol?: 2-3 times a week 2. How many drinks containing alcohol do you have on a typical day when you are drinking?: 1 or 2 3. How often do you have six or more drinks on one occasion?: Never Total Score: 3 Score Reviewed/Action Taken: No ROD-7 AMB Questionnaire ROD-7 Date ROD - 7 assessed: 02/29/24 Feeling nervous, anxious, or on edge: 0 = Not at all Not being able to stop or control worryin = Not at all Worrying too much about different things: 0 = Not at all Trouble relaxin = Not at all Being so restless that it is hard to sit still: 0 = Not at all Becoming easily annoyed or irritable: 0 = Not at all Feeling afraid as if something awful might happen: 0 = Not at all Total ROD-7 score (0-4 normal; 5-9 mild; 10-14 moderate; 15-21 severe): 0 Source: Developed by Drs. Tre Pfeiffer, Satish Baca and colleagues, with an educational eleni from [employer] ROD-7 Assessment Billing ROD-7 Assessment Tool: ROD-7 Assessment 26176 Review of Systems Const All systems reviewed & are unremarkable except as noted in HPI and below Eyes Reports no additional complaints, Denies change in vision and Denies other visual disturbances Card Denies chest pain at rest, Denies chest pain with activity, Denies edema, Denies irregular heart rhythm, Denies claudication, Denies dyspnea, Denies dyspnea on exertion, Denies orthopnea, Denies paroxysmal nocturnal dyspnea and Denies slow heart rate Resp Denies cough, Denies dyspnea and Denies dyspnea on exertion Neuro Denies lack of coordination Physical exam (Primary Care) Vital Signs: Last Vital Signs BP 130/72 02/29/24 12:30 BMI result Body Mass Index 26.0 Tobacco/Smoking Status: Tobacco use Status Tobacco use date assessed 02/29/24 02/29/24 12:36 Patient Tobacco Use Status Former Tobacco user 02/29/24 12:36 Tobacco use type Cigarette 02/29/24 12:36 e-Cigarette/Vaping Use Never Used 02/29/24 12:36 PHQ-9: PHQ-9 Score PHQ-9: Total score 0 02/29/24 12:50 Depression Screening Interpretation: Negative Thrive Assessment: Date of Thrive Assessment Date Thrive assessed 02/29/24 02/29/24 12:36 Currently or been in a relationship where the following occur: no concerns reported Const Orientation/consciousness: patient oriented x3 HENMT Ears: external ears normal Resp Effort & Inspection: normal respiratory effort Auscultation: clear to auscultation bilaterally Cardio Jugular venous distension: no JVD Rate: regular rate Rhythm: regular rhythm Heart sounds: S1 normal heart sound present and S2 normal heart sound present Neuro General: patient oriented x3 and no focal motor deficits Extrem General: Yes full ROM Psych Appearance: grossly normal Assessment and Plan Assessment & Plan (1) Essential hypertension: Code(s): I10 - Essential (primary) hypertension Plan: Continue hydrochlorothiazide. Blood pressure goal is equal or less than 130/80. (2) Hypothyroidism: Code(s): E03.9 - Hypothyroidism, unspecified Qualifiers: Hypothyroidism type: acquired Qualified Code(s): E03.9 - Hypothyroidism, unspecified Plan: Continue levothyroxine (3) Dyslipidemia: Code(s): E78.5 - Hyperlipidemia, unspecified Plan: Continue statins. (4) Impaired glucose tolerance: Code(s): R73.02 - Impaired glucose tolerance (oral) Plan: Repeat fasting blood glucose. Start low-carbohydrate diet. Orders: Orders Lipid Panel 6 Months E78.5 - Hyperlipidemia, unspecified Comprehensive [place]. Panel Fast 6 Months I10 - Essential (primary) hypertension Thyroid Stimulating Hormone 6 Months E03.9 - Hypothyroidism, unspecified Referrals Ear/Nose/Throat Referral H92.09 - Otalgia, unspecified ear Coding Level of Care Code Est Pt Level 4 (14011) Diagnoses Essential hypertension I10 Acquired hypothyroidism E03.9 Hypothyroidism type: acquired Dyslipidemia E78.5 Impaired glucose tolerance R73.02 Additional Codes ROD-7 Assessment Billing - ROD-7 Assessment Tool: ROD-7 Assessment 72634 ([id number]) Time Spent (min) 21
== END 2024-02-29 13:02 | disposition home or self-care (01) ==
PROVIDERS: PCP Internal Medicine; Visit Provider Internal Medicine
DX: I10 Essential (primary) hypertension (principal); E03.9 Hypothyroidism, unspecified; E78.5 Hyperlipidemia, unspecified; R73.02 Impaired glucose tolerance (oral)
CPT/HCPCS: 99214

== ENCOUNTER 2024-04-10 07:59 | Outpatient (AMB) | payer MEDICARE, SELFPAY ==
[2024-04-10 08:01] VITALS: BP 142/76; PULSE 68; BMI 26.2
--- NOTE | 2024-04-10 08:01 | A.OFFVIS_ITS ---
Vital Signs 04/10/24 08:01 Height 5 ft Weight 134 lb 4.184 oz BMI 26.2 BP 142/76 H Blood Pressure Location Lt brachial Position Sitting Pulse 68 Pulse Source Pulse Oximeter Intake Visit Reasons: F/U NTMNG-lvm Intake Note: Patient present today for NTMNG follow up visit. Previously seen by Dr. Villegas on 04/10/23. Corporate Accounting Manager Required: No Accompanied by: Self / Same As Patient Allergies acetaminophen [From Percocet] Allergy (Intermediate, Verified 04/10/24 08:06) Vomiting atropine [From Lomotil] Allergy (Intermediate, Verified 04/10/24 08:06) Vomiting codeine [CODEINE] Allergy (Intermediate, Verified 04/10/24 08:06) Nausea and Vomiting diphenoxylate [From Lomotil] Allergy (Intermediate, Verified 04/10/24 08:06) Vomiting erythromycin base Allergy (Intermediate, Verified 04/10/24 08:06) Swelling, Trouble breathing meperidine [From Demerol] Allergy (Intermediate, Verified 04/10/24 08:06) Nausea and Vomiting nabumetone Allergy (Intermediate, Verified 04/10/24 08:06) Unknown oxycodone [From Percocet] Allergy (Intermediate, Verified 04/10/24 08:06) Vomiting Medication List - Last Reconciled 04/10/24 by Tre Gilliam MD ascorbate calcium (vitamin C) 1 g PO Q6H aspirin 81 mg PO DAILY atorvastatin 40 mg PO BEDTIME 90 days gabapentin 100 mg PO BEDTIME 30 days hydrochlorothiazide 12.5 mg PO DAILY 90 days levothyroxine 75 mcg PO DAILY multivitamin 1 tab PO DAILY omega-3 fatty acids (Fish Oil Concentrate) 1,000 mg PO DAILY vitamin B complex 1 cap PO DAILY HPI Comments Details: 78 YO Female with a 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 She had a L hemithyroidectomy in 2009 which she reports was benign. She has continued with hypothyroidism since that time, and remains on levothyroxine 75 mcg PO daily. TSH remains at goal. She has residual R lobe nodules, including a large RLP nodule. She has had FNA attempted of this nodule 3 times, all nondiagnostic. She has refused further biopsies and has continued just with once yearly surveillance US of the thyroid. She denies any personal history of head and neck irradiation. She denies any Family history of thyroid cancer. US Thyroid: 02/20/2023 Right Thyroid Lobe: 3.4 x 1.7 x 1.5 cm, volume 4.6 mL. Previously 4.3 x 1.6 x 1.5 cm, volume 5.3 mL. Parenchyma: The gland echotexture is homogeneous. Thyroid vascularity is normal. Left Thyroid Lobe: Surgically absent. Isthmus: Not seen. Previously 0.5 cm. Estimated total number of nodules greater than or equal to 1 cm: 1. Dental Nurse nodules are described as follows: 1.? Location: Right mid. ?? ? Size: 0.7 x 0.5 x 0.6 cm, volume 0.1 mL. ?? ? Previously: 0.6 x 0.5 x 0.7 cm, volume 0.1 mL. ?? ? Nodule characteristics: ?? ? Composition: Solid (2). ?? ? Echogenicity: Isoechoic (1). ?? ? Shape: Not taller than wide (0). ?? ? Margins: Smooth (0). ?? ? Echogenic Foci: None (0).? ACR TI-RADS total points: 3 Previous: 3 ?? ? ACR TI-RADS category: 3 Previous: 3 ? Significant change in size (>/= 20% in 2 dimensions and minimal increase of 2 mm or 50% or greater increase in volume): No ?? ? Change in features: No ?? ? Change in ACR TI-RADS risk category: No 2.? Location: Right mid. ?? ? Size: 1.1 x 0.7 x 0.8 cm, volume 0.4 mL. ?? ? Previously: 1.1 x 0.5 x 0.6 cm, volume 0.2 mL. ?? ? Nodule characteristics: ?? ? Composition: Solid (2). ?? ? Echogenicity: Hyperechoic (1). ?? ? Shape: Not taller than wide (0). ?? ? Margins: Smooth (0). ?? ? Echogenic Foci: None (0).? ACR TI-RADS total points: 3 Previous: 3 ?? ? ACR TI-RADS category: 3 Previous: 3 Significant change in size (>/= 20% in 2 dimensions and minimal increase of 2 mm or 50% or greater increase in volume): No ?? ? Change in features: No ?? ? Change in ACR TI-RADS risk category: No 3. 3. Location: Right inferior. Size: 1.8 x 2.2 x 1.5 cm, volume 1.9 mL. Previously: 2 x 1.2 x 1.5 cm. nodule characteristics: Composition: Solid (2). Echogenicity: Hypoechoic (2). Shape: Not taller than wide (0). Margins: Smooth (0). Echogenic Foci: None (0). ACR TI-RADS total points: 4 ACR TI-RADS category: 4 It is uncertain whether this represents an exophytic thyroid nodule or could represent a parathyroid adenoma. This does not appear changed and has reportedly been previously biopsied. NODES: No lymphadenopathy is seen in the tissue surrounding the thyroid gland. Labs: Laboratory Tests 02/21/23 07:23 TSH 2.25 PFSH Medical History Vitamin D deficiency Multinodular thyroid Renal calculi Dyslipidemia Hypothyroidism Skin lesion Mass of right foot Essential hypertension Surgical History History of thyroidectomy, subtotal S/P thyroid biopsy History of breast biopsy History of carpal tunnel release History of tonsillectomy History of appendectomy Family History Father Stomach cancer CVD (cardiovascular disease) Mother Leukemia Mental health disorder Brother AIDS Paternal Grandmother Diabetes Brother No problems noted. Brother No problems noted. Son No problems noted. Daughter No problems noted. Social History Housing: House Alcohol intake: current Alcohol intake frequency: a few times a week Alcohol type: hard liquor Patient Tobacco Use Status: Former Tobacco user Tobacco use type: Cigarette e-Cigarette/Vaping Use: Never Used Second Hand Smoke Exposure: No service: No Current occupational status: retired Cognitive needs: No Hearing needs: No Vision needs: Yes Physical Exam Vital Signs: Last Vital Signs Pulse 68 04/10/24 08:01 BP 142/76 H 04/10/24 08:01 BMI result Body Mass Index 26.2 Const Other: Healed scar status post left lobectomy. Right lobe was without the presence of any palpable nodules Assessment & Plan Assessment & Plan (1) Multinodular thyroid: Code(s): E04.2 - Nontoxic multinodular goiter Category: Medical Plan: This 78-year-old white female with a history of left lobectomy and right lobe with multiple nodules with a dominant nodule being the right lower pole somewhat ill-defined and was previously biopsied 3 times with adequate cytology. She appears to be clinically and biochemically euthyroid Plan is to talk to the patient about different options including reaspiration of the right lower pole mass versus surgical resection versus observation. The patient is unwilling to undergo FNA or would refuse surgery should the mass found to warrants surgical resection, the patient returned to the care of her primary care provider and only have ultrasound if becomes symptomatic. We did extensively discuss again that without biopsy there is no with the determine what the mass is and that it potentially could cause morbidity and mortality in the future. After long discussion with the patient, we decided to send for a 2nd opinion to Dr. Travis at [facility] Orders: Referrals Endocrinology Referral E04.2 - Nontoxic multinodular goiter Coding Level of Care Code Est Pt Level 3 (04300) Diagnoses Multinodular thyroid E04.2
== END 2024-04-10 08:40 | disposition home or self-care (01) ==
PROVIDERS: PCP Internal Medicine; Visit Provider Internal Medicine Endocrinology, Diabetes & Metabolism
DX: E04.2 Nontoxic multinodular goiter (principal)
CPT/HCPCS: 99213

== ENCOUNTER → 2024-04-10 07:59 | Outpatient (BNVA) | payer MEDICARE, SELFPAY | PROVIDERS: Visit Provider Internal Medicine Endocrinology, Diabetes & Metabolism | DX: E04.2 Nontoxic multinodular goiter (principal); E89.0 Postprocedural hypothyroidism | CPT/HCPCS: 99212 ==

== ENCOUNTER 2024-07-01 08:19 | Outpatient (REF) | payer MEDICARE, SELFPAY ==
--- NOTE | ~2024-07-01 | XR_ITS ---
EXAMINATION: XR KNEE, RIGHT XR KNEE AP STANDING CLINICAL INFORMATION: Right knee pain. COMPARISON: Radiographs dated 06/11/2013 and 10/06/2010. TECHNIQUE: Lateral and axial views of the right knee were obtained. AP bilateral standing view of the knees was obtained. FINDINGS: Bony alignment and mineralization are normal. There is mild asymmetric narrowing of the bilateral medial joint space compartments, with peripheral osteophyte formation. There is narrowing of the right patellofemoral compartment, with peripheral osteophyte formation. No fracture, dislocation or joint effusion is seen. There is no foreign body. XR/XR knee RT 3V IMPRESSION: 1. No fracture, dislocation or joint effusion is seen. 2. There is mild osteoarthritic change of the right medial and patellofemoral joint space compartments. 3. There is mild osteoarthritic change in the left medial joint space. Electronically signed by: Joshua Kowalski MD 07/30/2024 04:11 PM EDT
== END 2024-07-01 08:20 | disposition home or self-care (01) ==
LOC: HO.HOSX 08:19
PROVIDERS: PCP Internal Medicine; Visit Provider Orthopaedic Surgery
DX: M25.561 Pain in right knee (principal); M17.31 Unilateral post-traumatic osteoarthritis, right knee
CPT/HCPCS: 73562; 99212

== ENCOUNTER 2024-07-01 08:19 | Outpatient (AMB) | payer MEDICARE, SELFPAY ==
--- NOTE | 2024-07-01 08:22 | A.OFFVIS_ITS ---
Vital Signs 07/01/24 08:23 Height 5 ft Weight 134 lb BMI 26.2 Intake Visit Reasons: NewProb- RT knee pain Intake Note: Crystal is an 78 year old female who presents today for a new problem visit with complaints of right knee pain. Patient reports that this right knee has been painful for many years now. She reports history of a right knee injection, which was helpful. Takes Advil PRN pain. Today she does not report any pain. Allergies acetaminophen [From Percocet] Allergy (Intermediate, Verified 07/01/24 08:40) Vomiting atropine [From Lomotil] Allergy (Intermediate, Verified 07/01/24 08:40) Vomiting codeine [CODEINE] Allergy (Intermediate, Verified 07/01/24 08:40) Nausea and Vomiting diphenoxylate [From Lomotil] Allergy (Intermediate, Verified 07/01/24 08:40) Vomiting erythromycin base Allergy (Intermediate, Verified 07/01/24 08:40) Swelling, Trouble breathing meperidine [From Demerol] Allergy (Intermediate, Verified 07/01/24 08:40) Nausea and Vomiting nabumetone Allergy (Intermediate, Verified 07/01/24 08:40) Unknown oxycodone [From Percocet] Allergy (Intermediate, Verified 07/01/24 08:40) Vomiting HPI HPI NewProb- RT knee pain: Details: Crystal is an 78 year old female who presents today for a new problem visit with complaints of right knee pain. Patient reports that this right knee has been painful for many years now. She reports history of a right knee injection, which was helpful. Takes Advil PRN pain. Today she does not report any pain. [facility] Medical History Vitamin D deficiency Multinodular thyroid Renal calculi Dyslipidemia Hypothyroidism Skin lesion Mass of right foot Essential hypertension Surgical History History of thyroidectomy, subtotal S/P thyroid biopsy History of breast biopsy History of carpal tunnel release History of tonsillectomy History of appendectomy Family History Father Stomach cancer CVD (cardiovascular disease) Mother Leukemia Mental health disorder Brother AIDS Paternal Grandmother Diabetes Brother No problems noted. Brother No problems noted. Son No problems noted. Daughter No problems noted. Social History Housing: House Alcohol intake: current Alcohol intake frequency: a few times a week Alcohol type: hard liquor Patient Tobacco Use Status: Former Tobacco user Tobacco use type: Cigarette e-Cigarette/Vaping Use: Never Used Second Hand Smoke Exposure: No service: No Current occupational status: retired Cognitive needs: No Hearing needs: No Vision needs: Yes Physical Exam Vital Signs: BMI result Body Mass Index 26.2 Extrem Other: medial compartment gonadarthrosis with min to no TTP. Nl gait Results Reviewed Results Reviewed: I personally reviewed relevant radiographs. Moderate to severe right knee medial compartment OA Assessment & Plan Assessment & Plan (1) Unilateral post-traumatic osteoarthritis, right knee: Code(s): M17.31 - Unilateral post-traumatic osteoarthritis, right knee Category: Medical Plan: Right knee OA. Asymptomatic. Discussed pathophysiology and benefits of exercise. No treatment indicated at this time. Plan No treatment warranted at this time, follow up PRN Orders: Orders XR knee RT 3V Today M25.561 - Pain in right knee Coding Level of Care Code Est Pt Level 3 (79557) Diagnoses Unilateral post-traumatic osteoarthritis, right knee M17.31
[2024-07-01 08:23] VITALS: BMI 26.2
== END 2024-07-01 08:58 | disposition home or self-care (01) ==
PROVIDERS: PCP Internal Medicine; Visit Provider Orthopaedic Surgery
DX: M17.31 Unilateral post-traumatic osteoarthritis, right knee (principal)
CPT/HCPCS: 99213

== ENCOUNTER 2024-07-09 09:59 | Outpatient (AMB) | payer MEDICARE, SELFPAY ==
[2024-07-09 10:08] VITALS: BMI 26.2
--- NOTE | 2024-07-09 10:08 | MHC.OFFVIS ---
Vital Signs 07/09/24 10:08 Height 5 ft Weight 134 lb BMI 26.2 Intake Visit Reasons: New Prob- Right middle finger pain, no injury Intake Note: Crystal is a 78 year old right hand dominant female who presents today for a new problem visit with complaints of right middle finger pain. Patient reports her pain presented a couple of weeks after she was gardening. States that she was unable to bend her finger. Her pain has subsided however she continues to have swelling swelling in her finger. Denies numbness or tingling. Allergies acetaminophen [From Percocet] Allergy (Intermediate, Verified 07/09/24 10:16) Vomiting atropine [From Lomotil] Allergy (Intermediate, Verified 07/09/24 10:16) Vomiting codeine [CODEINE] Allergy (Intermediate, Verified 07/09/24 10:16) Nausea and Vomiting diphenoxylate [From Lomotil] Allergy (Intermediate, Verified 07/09/24 10:16) Vomiting erythromycin base Allergy (Intermediate, Verified 07/09/24 10:16) Swelling, Trouble breathing meperidine [From Demerol] Allergy (Intermediate, Verified 07/09/24 10:16) Nausea and Vomiting nabumetone Allergy (Intermediate, Verified 07/09/24 10:16) Unknown oxycodone [From Percocet] Allergy (Intermediate, Verified 07/09/24 10:16) Vomiting HPI HPI New Prob- Right middle finger pain, no injury: Details: Patient is an 78-year-old female who presents for evaluation of right middle finger pain that began approximately 2 weeks ago. The patient reports that, at that time, she was pulling weeds in her garden, and felt that 1 of the stalks of the weeds wrapped around her finger and she had to pull harder than she had to previously, and she began to experience some pain and swelling in her right middle finger, focused around the DIP joint. However, the patient reports that over the last couple of weeks, her symptoms have completely resolved, and she has now returned to the baseline function of her right middle finger. Of note, the patient reports that she does have significant arthritis in bilateral hands, and she feels that this may have contributed to the pain and swelling she experienced previously. Patient reports normal sensation in the right middle finger at this time, and states that she is status post carpal tunnel release in the right and left hands. The patient states that while she did not feel she warranted urgent evaluation today, she did want to be evaluated just in case there was any sort of underlying structural abnormality. No other acute complaints or concerns at this time. [facility] Medical History Vitamin D deficiency Multinodular thyroid Renal calculi Dyslipidemia Hypothyroidism Skin lesion Mass of right foot Essential hypertension Surgical History History of thyroidectomy, subtotal S/P thyroid biopsy History of breast biopsy History of carpal tunnel release History of tonsillectomy History of appendectomy Family History Father Stomach cancer CVD (cardiovascular disease) Mother Leukemia Mental health disorder Brother AIDS Paternal Grandmother Diabetes Brother No problems noted. Brother No problems noted. Son No problems noted. Daughter No problems noted. Social History Housing: House Alcohol intake: current Alcohol intake frequency: a few times a week Alcohol type: hard liquor Patient Tobacco Use Status: Former Tobacco user Tobacco use type: Cigarette e-Cigarette/Vaping Use: Never Used Second Hand Smoke Exposure: No service: No Current occupational status: retired Cognitive needs: No Hearing needs: No Vision needs: Yes Review of Systems Const All systems reviewed & are unremarkable except as noted in HPI and below Physical Exam Vital Signs: BMI result Body Mass Index 26.2 Extrem Other: Patient is alert, oriented, and in no acute distress. Neuro: Patient reports normal sensation to all digits of the right hand at this time Vascular: Cap refill brisk Pain: Patient reports no tenderness to palpation about the right hand, particularly the right middle finger ROM: Patient is only able to flex to approximately 30 degrees at the DIP joint of the right middle finger, however the patient states that this has been her baseline function for years. Patient is able to make a closed fist. Skin: No lacerations or abrasions. General: No ecchymosis, erythema, or evidence of infection. Psych: Appears grossly normal Affect normal Attitude cooperative Results Reviewed Results Reviewed: X-rays obtained in the office today and independently reviewed by me, Benjamin Satnam PA-C, demonstrate severe degenerative changes of the PIP joints of the right hand, particularly the DIP joint of the right middle finger significant osteophyte formation and joint space narrowing. No acute fracture or bony abnormality noted. Assessment & Plan Assessment & Plan (1) Osteoarthritis of right hand: Code(s): M19.041 - Primary osteoarthritis, right hand Category: Medical Plan 1. Osteoarthritis of DIP joints of right hand Patient is informed about this condition and the typical recovery course Patient is informed that, beyond fusion of the DIP joints, there are limited options available for treatment of this condition However, as the patient reports she is asymptomatic at this time, I do not feel that surgical intervention is warranted, and the patient states that she would like to avoid surgery at this time. Patient is amenable to this plan Patient is educated about conservative measures for management of pain and discomfort, such as rest, ice, elevation, and [id number] pain medication such as Tylenol and ibuprofen if needed Patient will follow-up p.r.n. with any acute concerns Orders: Orders XR hand RT min 3V Today M79.641 - Pain in right hand Coding Level of Care Code Est Pt Level 3 (50074) Diagnoses Osteoarthritis of right hand M19.041
== END 2024-07-09 10:29 | disposition home or self-care (01) ==
PROVIDERS: PCP Internal Medicine
DX: M19.041 Primary osteoarthritis, right hand (principal)
CPT/HCPCS: 99213

== ENCOUNTER 2024-07-09 10:24 | Outpatient (REF) | payer MEDICARE, SELFPAY ==
--- NOTE | ~2024-07-09 | XR_ITS ---
EXAMINATION: XR HAND, RIGHT CLINICAL INFORMATION: Pain COMPARISON: None available. TECHNIQUE: PA, lateral, and oblique views of the right hand. FINDINGS: There is bony demineralization. There is variable osteoarthritic change of the interphalangeal joints of the first through fifth fingers, most pronounced of the second and third distal interphalangeal joints. There is moderate osteoarthritic change of the first carpometacarpal joint. No fracture or dislocation is seen. The proximal and distal carpal rows are intact. There is no focal soft tissue swelling, gas or foreign body. XR/XR hand RT min 3V IMPRESSION: There is multi-focal osteoarthritic change of the right hand and wrist. No fracture or dislocation is seen. There is no abnormal bone erosion. Electronically signed by: Joshua Kowalski MD 08/01/2024 03:52 PM EDT
== END 2024-07-09 10:25 | disposition home or self-care (01) ==
LOC: HO.HOSX 10:24
DX: M19.041 Primary osteoarthritis, right hand (principal)
CPT/HCPCS: 73130; 99212

== ENCOUNTER 2024-09-02 07:35 | Outpatient (REF) | payer MEDICARE, SELFPAY ==
[2024-09-02 08:54] LABS: Alanine Aminotransferase 22 U/L (0-31); Albumin Level 4.4 g/dL (3.5-5.0); Alkaline Phosphatase 68 U/L (39-117); Anion Gap 14 (12-20); Aspartate Amino Transferase 26 U/L (5-31); Bilirubin Total 0.9 mg/dL (0.0-1.0); Blood Urea Nitrogen 15 mg/dL (9-16); Calcium 9.6 mg/dL (8.4-10.2); Carbon Dioxide 27 mmol/L (22-29); Chloride 103 mmol/L (96-108); Cholesterol 190 mg/dL (<200); Estimated Glomerular Filt Rate > 60; Glucose Fasting 116 mg/dL (60-99); HDL Cholesterol 55 mg/dL (>40); LDL Cholesterol Calculated 108 mg/dL (<100); Potassium 3.9 mmol/L (3.3-5.1); Sodium 140 mmol/L (135-145); Total Protein 7.4 g/dL (6.5-8.0); Triglycerides 135 mg/dL (<150)
[2024-09-02 09:10] LABS: Thyroid Stimulating Hormone 2.05 uIU/mL (0.32-4.0)
== END 2024-09-02 07:36 | disposition home or self-care (01) ==
LOC: HO.LAB 07:35
PROVIDERS: PCP Internal Medicine; Visit Provider Internal Medicine
DX: I10 Essential (primary) hypertension (principal); E78.5 Hyperlipidemia, unspecified; E03.9 Hypothyroidism, unspecified
CPT/HCPCS: 36415; 80053; 80061; 84443; 99212

== ENCOUNTER 2024-09-02 07:58 | Outpatient (AMB) | payer MEDICARE, SELFPAY ==
--- NOTE | 2024-09-02 07:59 | MHC.PC.OV ---
Vital Signs 09/02/24 08:01 09/02/24 08:37 Height 5 ft Weight 134 lb BMI 26.2 BP 146/82 H 140/80 H Blood Pressure Location Lt brachial Lt brachial Position Sitting Sitting Intake Visit Reasons: bp,thyroid,lipids Intake Note: Patient here for a follow up, thyroid, lipids Data Review Specialist Required: No Accompanied by: Self / Same As Patient Allergies acetaminophen [From Percocet] Allergy (Intermediate, Verified 09/02/24 08:24) Vomiting atropine [From Lomotil] Allergy (Intermediate, Verified 09/02/24 08:24) Vomiting codeine [CODEINE] Allergy (Intermediate, Verified 09/02/24 08:24) Nausea and Vomiting diphenoxylate [From Lomotil] Allergy (Intermediate, Verified 09/02/24 08:24) Vomiting erythromycin base Allergy (Intermediate, Verified 09/02/24 08:24) Swelling, Trouble breathing meperidine [From Demerol] Allergy (Intermediate, Verified 09/02/24 08:24) Nausea and Vomiting nabumetone Allergy (Intermediate, Verified 09/02/24 08:24) Unknown oxycodone [From Percocet] Allergy (Intermediate, Verified 09/02/24 08:24) Vomiting Medication List - Last Reconciled 09/02/24 by Lauren Dykes MD ascorbate calcium (vitamin C) 1 g PO Q6H aspirin 81 mg PO DAILY atorvastatin 40 mg PO BEDTIME 90 days gabapentin 100 mg PO BEDTIME 30 days hydrochlorothiazide 12.5 mg PO DAILY 90 days levothyroxine 75 mcg PO DAILY multivitamin 1 tab PO DAILY omega-3 fatty acids (Fish Oil Concentrate) 1,000 mg PO DAILY vitamin B complex 1 cap PO DAILY Tobacco use date assessed: 02/29/24 Fall risk assessment: No Falls in past year Last assessed Fall Risk: 09/02/24 Dental Screening Dental Screen Date: 09/02/24 Did you have a dental visit in the last 12 months?: Yes Did you have a dental problem in the last 6 months where you did not have access to dental care?: No Was dental information given to patient?: Patient has dentist HPI HPI Comments History of Present Illness Details This is an 78-year-old female with hypertension, hypothyroidism, dyslipidemia and impaired glucose tolerance that comes today for follow-up on her conditions. Blood pressure borderline normal to elevated and she has not take her medication yet. TSH normal. Cholesterol well controlled. Still has elevated fasting blood glucose but denies any polyuria, polydipsia or unintentional weight loss. No chest pain or shortness on breath. [facility] Medical History Vitamin D deficiency Multinodular thyroid Renal calculi Dyslipidemia Hypothyroidism Skin lesion Mass of right foot Essential hypertension Surgical History History of thyroidectomy, subtotal S/P thyroid biopsy History of breast biopsy History of carpal tunnel release History of tonsillectomy History of appendectomy Family History Father Stomach cancer CVD (cardiovascular disease) Mother Leukemia Mental health disorder Brother AIDS Paternal Grandmother Diabetes Brother No problems noted. Brother No problems noted. Son No problems noted. Daughter No problems noted. Social History Housing: House Alcohol intake: current Alcohol intake frequency: a few times a week Alcohol type: hard liquor Patient Tobacco Use Status: Former Tobacco user Tobacco use type: Cigarette e-Cigarette/Vaping Use: Never Used Second Hand Smoke Exposure: No service: No Current occupational status: retired Cognitive needs: No Hearing needs: No Vision needs: Yes Questionnaire Thrive Questionnaire Date Thrive assessed: 02/29/24 Are you currently unemployed and looking for a job?: No ROD-7 AMB Questionnaire ROD-7 Date ROD - 7 assessed: 02/29/24 Source: Developed by Drs. Tre Pfeiffer, Adelaide Michele, Satish Gonzales and colleagues, with an educational eleni from [employer]. Review of Systems Const All systems reviewed & are unremarkable except as noted in HPI and below Card Denies chest pain at rest, Denies chest pain with activity, Denies edema, Denies irregular heart rhythm, Denies claudication, Denies dyspnea, Denies dyspnea on exertion, Denies orthopnea, Denies paroxysmal nocturnal dyspnea and Denies slow heart rate Resp Denies cough, Denies dyspnea and Denies dyspnea on exertion GI Denies abdominal pain, Denies change in bowel habits, Denies excessive flatus, Denies nausea and Denies vomiting Denies urinary incontinence, Denies urinary hesitancy and Denies urinary urgency Musc Denies atrophy, Denies deformity and Denies limited range of motion Physical exam (Primary Care) Vital Signs: Last Vital Signs BP 140/80 H 09/02/24 08:37 BMI result Body Mass Index 26.2 Tobacco/Smoking Status: Tobacco use Status Tobacco use date assessed 02/29/24 09/02/24 08:00 Patient Tobacco Use Status Former Tobacco user 09/02/24 08:00 Tobacco use type Cigarette 09/02/24 08:00 e-Cigarette/Vaping Use Never Used 09/02/24 08:00 Thrive Assessment: Date of Thrive Assessment Date Thrive assessed 02/29/24 09/02/24 08:00 Resp Effort & Inspection: normal respiratory effort Auscultation: clear to auscultation bilaterally Cardio Jugular venous distension: no JVD Rate: regular rate Rhythm: regular rhythm Heart sounds: S1 normal heart sound present and S2 normal heart sound present Extrem General: Yes full ROM Coding Level of Care Code Est Pt Level 4 (33718) Complex EM visit Add On G2211 Diagnoses Essential hypertension I10 Acquired hypothyroidism E03.9 Hypothyroidism type: acquired Dyslipidemia E78.5 Impaired glucose tolerance R73.02 Time Spent (min) 23 Assessment & Plan Assessment & Plan (1) Essential hypertension: Code(s): I10 - Essential (primary) hypertension Category: Medical Plan: Continue hydrochlorothiazide. Blood pressure goal is equal or less than 130/80. (2) Hypothyroidism: Code(s): E03.9 - Hypothyroidism, unspecified Category: Medical Qualifiers: Hypothyroidism type: acquired Qualified Code(s): E03.9 - Hypothyroidism, unspecified Plan: Continue levothyroxine. Monitor TSH. (3) Dyslipidemia: Code(s): E78.5 - Hyperlipidemia, unspecified Category: Medical Plan: Continue statins. Advised to follow a low-cholesterol diet. (4) Impaired glucose tolerance: Code(s): R73.02 - Impaired glucose tolerance (oral) Category: Medical Plan: Repeat fasting blood glucose.
[2024-09-02 08:01] VITALS: BP 146/82; BMI 26.2
[2024-09-02 08:37] VITALS: BP 140/80
== END 2024-09-02 08:37 | disposition home or self-care (01) ==
PROVIDERS: PCP Internal Medicine; Visit Provider Internal Medicine
DX: I10 Essential (primary) hypertension (principal); E03.9 Hypothyroidism, unspecified; E78.5 Hyperlipidemia, unspecified; R73.02 Impaired glucose tolerance (oral)

== ENCOUNTER 2024-09-23 07:31 | Outpatient (REF) | payer MEDICARE, SELFPAY ==
--- NOTE | ~2024-09-23 | MM_ITS ---
EXAMINATION: MM SCREENING DIGITAL BREAST TOMOSYNTHESIS, BILATERAL CLINICAL INFORMATION: Screening. Asymptomatic. COMPARISON: Mammography: Comparison is made with available priors TECHNIQUE: Digital breast mammography with tomosynthesis is performed in both the craniocaudal and mediolateral oblique views along with computer-aided detection (CAD). FINDINGS: The breasts are heterogeneously dense, which may obscure small masses (ACR BI-RADS breast composition Category c). Right excisional biopsy. There are no significant masses, abnormal calcifications, or other abnormalities. MM/MM tomosynthesis screening BI IMPRESSION: No mammographic evidence of malignancy. ASSESSMENT: BI-RADS BI-RADS 2 - Benign Findings RECOMMENDATION: Routine annual mammography screening. 1 year F/U This examination should not preclude the clinical evaluation of a suspicious palpable abnormality. This patient's information was entered into a reminder system with a target due date for their next mammogram. Electronically signed by: Aishwarya Garcia DO 10/01/2024 10:37 AM ANDRA
== END 2024-09-23 07:32 | disposition home or self-care (01) ==
LOC: HO.MAMMO 07:31
PROVIDERS: PCP Internal Medicine; Visit Provider Internal Medicine
DX: Z12.31 Encounter for screening mammogram for malignant neoplasm of breast (principal)
CPT/HCPCS: 77063; 77067

== ENCOUNTER → 2024-09-23 07:45 | Outpatient (BNV) | payer MEDICARE, SELFPAY | PROVIDERS: PCP Internal Medicine; Visit Provider Internal Medicine | DX: Z12.31 Encounter for screening mammogram for malignant neoplasm of breast (principal) | CPT/HCPCS: 77063; 77067 ==

== ENCOUNTER 2024-12-04 13:05 | Outpatient (AMB) | payer MEDICARE, SELFPAY ==
[2024-12-04 13:12] VITALS: BMI 26.4
--- NOTE | 2024-12-04 13:12 | A.OFFVIS_ITS ---
Vital Signs 12/04/24 13:12 Height 5 ft Weight 135 lb BMI 26.4 Intake Visit Reasons: New problem rt wrist pain Intake Note: Crystal 79 yr old right hand dominant female presents today for a new problem visit for her right hand pain. States she has a lump on her dorsal and volar aspect of hand. States she noticed this about 6 months ago it started to increase in size. At time she has little pain and discomfort. Denies numbness or tingling, or injury. Allergies acetaminophen [From Percocet] Allergy (Intermediate, Verified 12/04/24 13:19) Vomiting atropine [From Lomotil] Allergy (Intermediate, Verified 12/04/24 13:19) Vomiting codeine [CODEINE] Allergy (Intermediate, Verified 12/04/24 13:19) Nausea and Vomiting diphenoxylate [From Lomotil] Allergy (Intermediate, Verified 12/04/24 13:19) Vomiting erythromycin base Allergy (Intermediate, Verified 12/04/24 13:19) Swelling, Trouble breathing meperidine [From Demerol] Allergy (Intermediate, Verified 12/04/24 13:19) Nausea and Vomiting nabumetone Allergy (Intermediate, Verified 12/04/24 13:19) Unknown oxycodone [From Percocet] Allergy (Intermediate, Verified 12/04/24 13:19) Vomiting HPI HPI New problem rt wrist pain: Details: Crystal is an 79 year old right hand dominant woman who presents with complaints of a right wrist mass. She complains of having a mass on the dorsal and volar aspect of her right wrist, which has been present for ~6 months now and has been changing in size. She denies any pain, numbness, or tingling. She says she just wanted to have these looked at in case it was serious. She has a Hx of bilateral hand OA. She has a Hx of bilateral carpal tunnel release in the past. She reports normal sensation bilaterally. [facility] Medical History Vitamin D deficiency Multinodular thyroid Renal calculi Dyslipidemia Hypothyroidism Skin lesion Mass of right foot Essential hypertension Surgical History History of thyroidectomy, subtotal S/P thyroid biopsy History of breast biopsy History of carpal tunnel release History of tonsillectomy History of appendectomy Family History Father Stomach cancer CVD (cardiovascular disease) Mother Leukemia Mental health disorder Brother AIDS Paternal Grandmother Diabetes Brother No problems noted. Brother No problems noted. Son No problems noted. Daughter No problems noted. Social History (Updated 12/04/24 @ 13:20 by MIREYA Rosenthal) Housing: House Alcohol intake: current Alcohol intake frequency: a few times a week Alcohol type: hard liquor Patient Tobacco Use Status: Former Tobacco user Tobacco use type: Cigarette e-Cigarette/Vaping Use: Never Used Second Hand Smoke Exposure: No service: No Current occupational status: retired Current occupation: rt hand Cognitive needs: No Hearing needs: No Vision needs: Yes Review of Systems Const All systems reviewed & are unremarkable except as noted in HPI and below Physical Exam Vital Signs: BMI result Body Mass Index 26.4 Const General: no acute distress and alert Orientation/consciousness: patient oriented x3 Neuro General: patient oriented x3 Extrem Other: Evaluation of Right Upper Extremity: The patient is alert, oriented, and in no acute distress Neuro: Median, Ulnar, Radial nerves motor and sensory intact and sensation is normal to the tips of all digits Vascular: Cap refill brisk ROM: She can make a fist and extend all her digits No locking or catching There is a mass on the volar aspect of her right distal wrist crease, in line with the FCR tendon, measuring ~9mm in diameter consistent with a small volar wrist ganglion There is a mass on the dorsal aspect of her right hand, over the EDC tendon to the index finger. This is mobile with the tendon, and is consistent either with a ganglion or possible inflammation about the tendon. Psych Appearance: grossly normal Affect: normal affect Attitude: cooperative Office Procedures AMB Fracture Care Details: No fracture, aspiration Fracture Billing Code: Fracture Billing Code Assessment & Plan Assessment & Plan (1) Ganglion cyst of volar aspect of right wrist: Code(s): M67.431 - Ganglion, right wrist Category: Medical (2) Mass of right hand: Comment: Dorsal ganglion cyst Code(s): R22.31 - Localized swelling, mass and lump, right upper limb Category: Medical (3) Osteoarthritis of right hand: Code(s): M19.041 - Primary osteoarthritis, right hand Category: Medical Plan Assessment & Plan: 1. Right volar wrist ganglion In the distal wrist crease, in line with the FCR tendon Measuring ~9mm in diameter 2. Right dorsal hand ganglion Over the EDC tendon in line with the index finger Mobile with tendons I educated her about these conditions She does not find these particularly painful or bothersome, but was concerned as she did not know what this was I discussed operative and non-operative treatment options The patient would like to proceed with aspiration of the ganglion associated with the EDC tendon to the index finger and she is in agreement I recommend she gently massage the volar wrist ganglion as this may help it decrease in size. If it does not, or if it becomes bothersome she knows that we can also treat this operatively. Aspiration #1: The risks and benefits of aspiration, including but not limited to risk of da mage to blood vessels, nerves, tendons, infection, failure to improve symptoms, increased pain, and possible need for further aspirations or surgical intervention. After obtaining written consent, I sterilely prepped the area over the right EDC tendon to the index finger over the metacarpals. I then injected subcutaneously with a small amount 1% lidocaine. I then passed an 18 gauge needle into the ganglion and aspirated some clear viscous fluid consistent with a ganglion. Some remaining viscous fluid was then pushed out of the ganglion. The patient tolerated this well and with no complications. Follow up p.r.n. for these issues. She is happy with the plan 3. Bilateral hand OA In multiple PIP & DIP joints 4. Left Carpal tunnel syndrome, S/P release DOS: 08/08/22 More normal sensation in the thumb & index fingers, still with reduced, but improved, sensation in the middle finger 5. Left small finger pre-trigger tenosynovitis Tender over the a1 deon No locking or catching at present Previous history of trigger fingers 6. Right Carpal tunnel syndrome, S/P release with an outside provider With complete resolution of her symptoms Scribed for Angelia Campbell MD by Ajit Ward, medical transcriptionist, on 12/04/24 at 1:40 PM, EST. Coding Level of Care Code Est Pt Level 4 (40195) Diagnoses Ganglion cyst of volar aspect of right wrist M67.431 Mass of right hand R22.31 Osteoarthritis of right hand M19.041 CPT Codes Fracture Care - Fracture Billing Code: Fracture Billing Code ([id number])
== END 2024-12-04 13:52 | disposition home or self-care (01) ==
PROVIDERS: PCP Internal Medicine; Visit Provider Orthopaedic Surgery
DX: M67.431 Ganglion, right wrist (principal); R22.31 Localized swelling, mass and lump, right upper limb; M19.041 Primary osteoarthritis, right hand
CPT/HCPCS: 20612; 99213

== ENCOUNTER → 2024-12-04 13:05 | Outpatient (BNVA) | payer MEDICARE, SELFPAY | PROVIDERS: PCP Internal Medicine; Visit Provider Orthopaedic Surgery | DX: M67.431 Ganglion, right wrist (principal); M19.042 Primary osteoarthritis, left hand; M19.041 Primary osteoarthritis, right hand | CPT/HCPCS: 20612; 99212; J2003 ==

== ENCOUNTER 2025-03-18 14:45 | Outpatient (REF) | payer MEDICARE, SELFPAY ==
--- NOTE | ~2025-03-18 | US_ITS ---
EXAMINATION: US THYROID HISTORY: E04.2 - Nontoxic multinodular goiter TECHNIQUE: Real-time grayscale ultrasound imaging was performed and images were reviewed. COMPARISON: Comparison is made with the prior examination dated 01/22/2024. FINDINGS: SIZE: The right thyroid lobe measures 3.6 x 2.1 x 1.5 cm. The left thyroid lobe is surgically absent. The isthmus measures 4 mm. FLOW: Flow to the gland is normal. ECHOGENICITY: The echotexture of the gland is heterogeneous. NODULES: There is hypoechoic nodule demonstrating punctate calcifications inferior to the right thyroid lobe measuring 2.2 x 1.8 x 1.4 cm. This could represent a parathyroid adenoma or an exophytic thyroid nodule. While this nodule is larger than on the prior study, it is similar in size to the examination dated 02/20/2023. A single nodule is seen in the right thyroid lobe as described below: Nodule #: 1 Location: Right upper pole measuring 11 x 8 x 10 mm (previously 10 x 8 x 7 mm). Shape: Wider than tall (0 points) Margins: Smooth (0 points) Echotexture: Hyperechoic (1 point) Composition: Solid (2 points) Calcifications: None (0 points) Total points: 3 TIRADS: TR3: Mildly suspicious. US/US thyroid IMPRESSION: 1. Status post left thyroidectomy. 2. Stable 11 x 8 x 10 mm nodule at the upper pole of the right thyroid lobe. 3. 2.2 x 1.8 x 1.4 cm nodule which appears inferior to the right thyroid lobe and could represent a parathyroid adenoma or an exophytic thyroid nodule. This is essentially unchanged in size with a prior examination dated 02/20/2023. ACR TI-RADS Guidelines TR1 (0 points): Benign, No follow-up or biopsy required TR2 (2 points): Not Suspicious, No biopsy or follow up indicated TR3 (3 points): Mildly Suspicious, FNA if >= 2.5 cm, Follow if >= 1.5 cm TR4 (4-6 points): Moderately Suspicious, FNA if >= 1.5 cm, Follow if >= 1.0 cm TR5 (>=7 points): Highly Suspicious, FNA if >= 1.0 cm, Follow if >= 0.5 cm Electronically signed by: Tre Freed MD 03/19/2025 04:52 PM EDT
--- OUTSIDE RECORDS SUMMARY | 2025-03-18 18:05 | XMS_ITS | Patient Health Record ---
Author Organization [facility] Jono gadiel Young Address [address] [place] [address] Care Team Providers Care Community Development Aide Name Role Phone Gus GARIBAY, Lauren Primary Care Provider Unavail able Henry Jones Unavailable [phone] Allergies Allergen (clinical drug ingredient) Drug/Non Drug Allergy documented on EMR Reaction Allergy Type Onset Date Status Biaxin Swelling Drug Allergy Active meperidine Demerol nausea and vomiting Drug Allergy Active atropine / diphenoxylate Lomotil vomiting Drug Allergy Active Novocain headache Drug Allergy Active acetaminophen / oxycodone Percocet vomiting Drug Allergy Active azithromycin Azithromycin Swelling Drug Allergy A ctive codeine Codeine nausea and vomiting Drug Allergy Active erythromycin Erythromycin trouble breathing Drug Allergy Active nabumetone Nabumetone Unknown Drug Allergy Activ e Reason For Referral No Information Medications Medication SIG (Take, Route, Frequency, Duration) Notes Start Date End Date Status hydroCHLOROthiazide 12.5 MG 1 capsule in the morning Orally Once a day for 30 day(s) Not-Taking Atorvastatin Calcium 40 MG 1 tablet Orally Once a day for 30 day(s) Active Aspirin 81 MG 1 tablet Orally Once a day for 30 day(s) Active Centrum Silver multivitamin Ac tive Citracal +D3 Active Night Splint AFO - L1930 as directed 07/21/2021 Active Fish Oil Active Levothyroxine Sodium Active Osteo Bi-Flex One Per Day Active Vitamin B Complex Ac tive Vitamin C Active Vitamin E Active Immunizations Vaccine Route Administration Date Status Comme nts COVID-19 Moderna Vaccine Unknown 01/19/2021 Administere d 1st 12/23/2020 Social History Tobacco Use: Social History Observation Description Date Details (start date - stop date) Former Smoker NA - NA Tobacco Use/Smoking Question Answer Notes Are you a: former smoker Alcohol Screen Question Answer Notes Did you have a drink containing alcohol in the p ast year? Yes Points 0 Interpretation Negative Tobacco use other than smoking: Question Answer Notes Are you an other tobacco user? No Problems Problem Type SNOMED Code ICD Code Onset Dates Problem Status W/U Status Risk Notes Problem Acquired hallux valgus (95964510) Hallux valgus (acquired), left foot (M20.12) Active confirmed Problem Acquired hallux valgus (16629697) Hallux valgus (acquired), right foot (M20.11) Active confirmed Plan Of Treatment Pending Test Test Name Order Date X ray : Foot, right 3V 07/21/2021 Insurance Providers Payer Name Payer Address Payer Phone Subscriber Number Group Number Insured Name Patient Relationship to Insured Coverage Start Date Coverage End Date Medicare [employer] [address] [place] [address] [id number] Crystal Calderon Self - patient is the insured [place] [address] [address] [address] [place] [address] [id number] Crystal Calderon Self - patient is the insured Medical (General) History Medical History History ICD Code Hypertension Hypothyroidism mass on right foot Skin lesion Dislipidemia Arthritis Back,Hip,and Knee pain Cholesterol Cataracts Headaches/Migraines Sciatica thyroid Measles Chicken pox Surgical History Surgery Date(Month/Year) appendectomy breast biopsy carpal tunnel release thyroidectomy tonsillectomy thyroid biopsy
== END 2025-03-18 14:46 | disposition home or self-care (01) ==
LOC: HO.US 14:45
PROVIDERS: PCP Internal Medicine; Visit Provider Internal Medicine
DX: E04.2 Nontoxic multinodular goiter (principal)
CPT/HCPCS: 76536

== ENCOUNTER → 2025-03-18 14:48 | Outpatient (BNV) | payer MEDICARE, SELFPAY | PROVIDERS: PCP Internal Medicine; Visit Provider Radiology Diagnostic Radiology | DX: E04.1 Nontoxic single thyroid nodule (principal) | CPT/HCPCS: 76536 ==

== ENCOUNTER 2025-04-06 07:32 | Emergency (ER) | payer MEDICARE, SELFPAY ==
--- NOTE | ~2025-04-06 | XR_ITS ---
CLINICAL HISTORY: atraumatic calf knee pain, unableto ambulate 4 view left knee Comparison: 07/01/2024 Findings: No fractures or dislocations. Mild knee osteoarthritis. No joint effusion. No radiopaque foreign body. IMPRESSION: 1. No acute findings. This document has been electronically signed by: Chica Golden MD on 04/06/2025 09:52:14
--- NOTE | ~2025-04-06 | US_ITS ---
CLINICAL HISTORY: calf pain, unable to weight bear Venous duplex ultrasound left lower extremity Comparison: None Findings: The visualized deep veins are fully compressible with normal Doppler color flow and spectral tracings. Benign 6 x 15 x 20 mm nonenlarged groin nodes. IMPRESSION: 1. Negative for left lower extremity deep vein thrombosis. This document has been electronically signed by: Chica Golden MD on 04/06/2025 11:07:12
[2025-04-06 07:34] VITALS: BP 145/79; PULSE 81; RESP 16; TEMP 36.4; O2SAT 97; BMI 24.4
--- NOTE | 2025-04-06 08:17 | ED.EXTPRO ---
HPI - Extremity Problem General Chief complaint: Extremity Injury, Lower Stated complaint: leg pain Time Seen by Provider: 04/06/25 07:58 Source: patient Mode of arrival: ambulatory Limitations: no limitations History of Present Illness ED Provider: Radha Jack NP HPI Narrative: Patient is an 79-year-old female who presents emergency department with family present at bedside for evaluation of pain to the left lower extremity. She reports yesterday evening at approximately 18:00 she was sitting down and she noticed that she began developing a pain to the medial aspect of her left calf. This lasted a few hours and then she felt the pain radiating up the entirety of her leg. Exacerbating with weight-bearing and movement. She states that today the pain was too intolerable that she could not walk on it. With movement of the leg she is endorsing pain posterior to the left knee. She denies any recent trauma or known precipitating injury. She denies any swelling to the extremity, redness, rashes or lesions. Denies any known recent insect/tick bites. She denies any known history of arthritis to the knee. Denies any history of VTE/malignancy. Denies recent surgery or prolonged immobilization. Denies associated chest pain or shortness breath. Related Data Home Medications ?Medication ?Instructions ?Recorded ?Confirmed ascorbate calcium (vitamin C) 500 1 g PO Q6H 10/07/21 09/02/24 mg tablet multivitamin 1 tab PO DAILY 10/07/21 09/02/24 omega-3 fatty acids 1,000 mg 1,000 mg PO DAILY 10/07/21 09/02/24 capsule (Fish Oil Concentrate) vitamin B complex 1 cap PO DAILY 10/07/21 09/02/24 aspirin 81 mg tablet,delayed 81 mg PO DAILY 04/14/22 09/02/24 release Previous Rx's ?Medication ?Instructions ?Recorded hydrochlorothiazide 12.5 mg tablet 12.5 mg PO DAILY 90 days #90 tabs 10/20/24 levothyroxine 75 mcg tablet 75 mcg PO DAILY #90 tabs 10/21/24 atorvastatin 40 mg tablet 40 mg PO BEDTIME 90 days #90 tabs 01/18/25 Allergies Allergy/AdvReac Type Severity Reaction Status Date / Time acetaminophen [From Percocet] Allergy Intermediate Vomiting Verified 04/06/25 07:37 atropine [From Lomotil] Allergy Intermediate Vomiting Verified 04/06/25 07:37 codeine [CODEINE] Allergy Intermediate Nausea and Verified 04/06/25 07:37 Vomiting diphenoxylate [From Lomotil] Allergy Intermediate Vomiting Verified 04/06/25 07:37 erythromycin base Allergy Intermediate Swelling, Verified 04/06/25 07:37 Trouble breathing meperidine [From Demerol] Allergy Intermediate Nausea and Verified 04/06/25 07:37 Vomiting nabumetone Allergy Intermediate Unknown Verified 04/06/25 07:37 oxycodone [From Percocet] Allergy Intermediate Vomiting Verified 04/06/25 07:37 Review of Systems Review of Systems: Yes all other systems are reviewed and are negative PMFSH Past Medical History Attestation statement: The following information was validated with the patient. Source: old records reviewed Medical History Vitamin D deficiency Multinodular thyroid Renal calculi Dyslipidemia Hypothyroidism Skin lesion Mass of right foot Essential hypertension Surgical History History of thyroidectomy, subtotal S/P thyroid biopsy History of breast biopsy History of carpal tunnel release History of tonsillectomy History of appendectomy Family History Family History Father Stomach cancer CVD (cardiovascular disease) Mother Leukemia Mental health disorder Brother AIDS Paternal Grandmother Diabetes Brother No problems noted. Brother No problems noted. Son No problems noted. Daughter No problems noted. Social History Social History (Updated 12/04/24 @ 13:20 by Shannen Cornell [facility]) Housing: House Alcohol intake: current Alcohol intake frequency: a few times a month Alcohol type: hard liquor Patient Tobacco Use Status: Former Tobacco user Tobacco use type: Cigarette Smoked in Last 30 Days: No e-Cigarette/Vaping Use: Never Used Second Hand Smoke Exposure: No Use of substances other than those prescribed or required for medical reasons: No Advance Directives: No Advance Directives Information Provided: Yes service: No Current occupational status: retired Current occupation: rt hand Cognitive needs: No Hearing needs: No Vision needs: Yes Physical Exam Vital Signs: Vital Signs: Last Vital Signs Temp 97.9 F 04/06/25 09:46 Pulse 75 04/06/25 09:59 Resp 14 04/06/25 09:59 BP 212/96 H 04/06/25 09:59 Pulse Ox 98 04/06/25 09:59 O2 Del Method Room Air 04/06/25 09:59 BMI result Body Mass Index 24.4 Appearance: Alert.?Oriented to person, place and time. No acute distress.?Normal affect. Eyes: Pupils equal, round and reactive to light.? ENT: Pharynx normal.?? Neck: Normal inspection.? Neck supple.?? CVS: Heart sounds normal. Normal heart rate and rhythm.? Pulses normal.?? Respiratory: No respiratory distress.? Lung sounds clear to auscultation bilaterally?? Abdomen: Soft and non-tender. Normoactive bowel sounds. .?? Skin: Skin warm and dry.? Normal skin color.? Extremities: No lower extremity edema.? Positive mild left calf ttp. Negative Homans test. Pain with active flexion of the left knee, point of most comfort is held in near full extension. No laxity to the knee on examination. Negative anterior and posterior drawer test. Full range of motion to right hip including external rotation without pain. 2+ DP/PT pulse bilaterally. Neuro: Moves all extremities spontaneously. Sensation intact bilaterally. Ambulates with antalgic gait. Course Reevaluation(s) Reevaluation #1: X-ray of the left knee with mild osteoarthritic changes no effusion fracture dislocation. CBC is without leukocytosis significant anemia or thrombocytopenia. No electrolyte derangement. No ANTWON. LFTs in CPK within normal range. Venous duplex ultrasound without evidence of VTE. She reports improvement in pain with acetaminophen. She is ambulatory with a slow steady gait. Reviewed conservative treatment over the next few days, use of elastic bandage, outpatient follow-up with primary care doctor and strict return precautions reviewed. All questions answered Reevaluation #2: Patient had a blood pressure entered into her record of 212/96 which I suspect was entered in error. This is not noted on the monitor in her room and states that she did not have a blood pressure obtained from a portable BP machine while here. The nurse taking care of the patient at this time has just assumed care. I rechecked her blood pressure it is currently 143/68 which is consistent with her earlier blood pressure readings. Time: 11:39 Medications Administered Discontinued Medications Generic Name Dose Route Start Last Admin Trade Name Amanda PRN Reason Stop Dose Admin Acetaminophen 975 mg 04/06/25 08:31 04/06/25 08:51 Acetaminophen 325 Mg Tablet PO 04/06/25 08:32 975 mg ONCE ONE Administration Medical Decision Making Medical Decision Making [facility] Narrative: Patient is an 79-year-old female with past medical history of hypertension, hypothyroidism, dyslipidemia, impaired glucose intolerance, arthritis who presents emergency department for evaluation of atraumatic left lower extremity pain since yesterday evening as per HPI. Overall she is well-appearing, nontoxic, afebrile. There are no rashes or lesions. The extremity is neurovascularly intact distally. There was no erythema or warmth of any of the joints to suggest a septic arthritis or even gout like presentation. Obtaining venous duplex ultrasound to evaluate further for possible DVT, popliteal cyst rupture though given her lack of ongoing knee pain I suspect this is less likely, XR to evaluate for acute osseous abnormality/degenerative changes. She is amenable to trialing acetaminophen for analgesia at this time. Patient's medical record lists acetaminophen as an allergy with reaction of vomiting, this however appears to have been when taking Percocet, she uses acetaminophen slowly at home without complication. Differential Diagnosis Differential Diagnoses: The differential diagnosis associated with the presentation includes (See narrative above) Admission/Observation Consideration of admission/observation: Escalation of care including admission/observation considered Lab Data [facility] Lab Attestation statement: I reviewed the patient's lab results. 04/06/25 09:50 04/06/25 09:50 Labs: Lab Results 04/06/25 Range/Units 09:50 WBC 5.9 (4.8-10.8) X10*3/uL RBC 4.02 L (4.20-5.50) X10*6/uL Hgb 12.6 (12.0-16.0) g/dl Hct 36.3 L (37.0-47.0) % MCV 90.3 (80.0-98.0) fL MCH 31.3 (27.0-33.0) pg MCHC 34.7 (31.0-35.0) g/dl RDW 13.4 (11.0-16.0) % Plt Count 213 (160-400) X10*3/uL MPV 9.1 L (9.4-12.3) fL Immature Gran % (Auto) 0.3 (0.0-0.4) % Neut % (Auto) 62.8 (45-73) % Lymph % (Auto) 26.6 (20-40) % [place] % (Auto) 8.6 (2-11) % Eos % (Auto) 1.0 (0-4) % Baso % (Auto) 0.7 (0-2) % Lymph # (Auto) 1.6 (1.2-4.9) X10*3/uL [place] # (Auto) 0.5 (0.1-1.2) X10*3/uL Eos # (Auto) 0.1 (0.0-0.4) X10*3/uL Baso # (Auto) 0.0 (0.0-0.2) X10*3/uL Abs Immat Gran (auto) 0.02 (0.00-0.03) X10*3/uL Absolute Neuts (auto) 3.7 (2.0-8.3) x10*3/uL Absolute Nucleated RBC 0.000 (0.0-0.012) X10*3/uL Nucleated RBC % (auto) 0.0 (0.0-0.2) /100WBC Sodium 139 (135-145) mmol/L Potassium 3.8 (3.3-5.1) mmol/L Chloride 105 (96-108) mmol/L Carbon Dioxide 26 (22-29) mmol/L Anion Gap 12 (12-20) BUN 21 H (9-16) mg/dL Creatinine 0.63 (0.5-1.4) mg/dL Estim Creat Clear Calc 55.3 Estimated GFR > 60 Random Glucose 110 (60-115) mg/dL Calcium 9.0 D (8.4-10.2) mg/dL Magnesium 2.1 (1.6-2.6) mg/dL Total Bilirubin 0.7 (0.0-1.0) mg/dL AST 27 (5-31) U/L ALT 24 (0-31) U/L Alkaline Phosphatase 57 (39-117) U/L Total Creatine Kinase 134 (26-140) U/L Total Protein 6.7 (6.5-8.0) g/dL Albumin 4.0 (3.5-5.0) g/dL Independent Interpretation I performed an independent interpretation of an: Plain X-Ray Radiology Impression Discussion of test interpretation with radiology: I have reviewed the radiologist's reading. Radiologist Impression: 4 view left knee Comparison: 07/01/2024 Findings: No fractures or dislocations. Mild knee osteoarthritis. No joint effusion. No radiopaque foreign body. IMPRESSION: 1. No acute findings. Venous duplex ultrasound left lower extremity Comparison: None Findings: The visualized deep veins are fully compressible with normal Doppler color flow and spectral tracings. Benign 6 x 15 x 20 mm nonenlarged groin nodes. IMPRESSION: 1. Negative for left lower extremity deep vein thrombosis. Independent Historian Clinical information obtained from an independent historian. History obtained from or confirmed by: Other (daughter) External Record Review External record reviewed: Outpatient record Chronic Conditions Patient?s care impacted by: Other (See narrative above) Discharge Plan Discharge Clinical Impression: Acute knee pain Qualifiers: Laterality: left Qualified Code(s): M25.562 - Pain in left knee Patient Disposition: Home, Self-Care Instructions: Knee Pain (ED) Additional Instructions: As discussed, blood work today was very reassuring. Ultrasound of the leg does not show evidence of a blood clot. X-ray shows mild arthritis in the left knee otherwise no fracture dislocation. Be sure to rest over the next few days, avoid excessive walking/bearing, stair climbing. Use elastic bandage for compression and stability. Apply ice for 10-15 minutes 3-4 times daily. You can take Tylenol 500 mg, 2 tablets (1,000mg) every 4-6 hours as needed for pain, but not to exceed 3 doses daily (3,000mg).? Follow-up with your primary care doctor within the next week with persistent symptoms. You may return to emergency department with any new or worsening symptoms or concerns Prescriptions: No Action hydrochlorothiazide 12.5 mg tablet 12.5 mg PO DAILY 90 Days Qty: 90 1RF levothyroxine 75 mcg tablet 75 mcg PO DAILY Qty: 90 2RF atorvastatin 40 mg tablet 40 mg PO BEDTIME 90 Days Qty: 90 3RF multivitamin Tablet 1 tab PO DAILY vitamin B complex Capsule 1 cap PO DAILY omega-3 fatty acids [Fish Oil Concentrate] 1,000 mg capsule 1,000 mg PO DAILY ascorbate calcium (vitamin C) 500 mg tablet 1 g PO Q6H aspirin 81 mg tablet,delayed release (DR/EC) 81 mg PO DAILY Referrals: Lauren Mccoy MD [Primary Care Provider] - Print Language: Tajik
[2025-04-06] MEDS: Acetaminophen 325 MG TABLET 975 MG PO (08:51)
[2025-04-06 09:46] VITALS: BP 142/64; PULSE 63; RESP 15; TEMP 36.6; O2SAT 98
[2025-04-06 09:53] LABS: MANUAL DIFF FLAG NO
[2025-04-06 09:59] VITALS: BP 212/96; PULSE 75; RESP 14; O2SAT 98
[2025-04-06 10:01] LABS: Basophils Percent Auto 0.7 % (0-2); Eosinophils Absolute Auto 0.1 X10*3/uL (0.0-0.4); Hematocrit 36.3 % (37.0-47.0); Hemoglobin 12.6 g/dl (12.0-16.0); Imm Gran Abs Auto 0.02 X10*3/uL (0.00-0.03); Imm Gran Pct Auto 0.3 % (0.0-0.4); Lymphocytes Absolute Auto 1.6 X10*3/uL (1.2-4.9); Lymphocytes Percent Auto 26.6 % (20-40); Mean Corpuscular HGB Conc 34.7 g/dl (31.0-35.0); Mean Corpuscular Hemoglobin 31.3 pg (27.0-33.0); Mean Corpuscular Volume 90.3 fL (80.0-98.0); Mean Platelet Volume 9.1 fL (9.4-12.3); Monocytes Absolute Auto 0.5 X10*3/uL (0.1-1.2); Monocytes Percent Auto 8.6 % (2-11); Neutrophils Absolute Auto 3.7 x10*3/uL (2.0-8.3); Neutrophils Percent Auto 62.8 % (45-73); Platelet Count 213 X10*3/uL (160-400); Red Blood Count 4.02 X10*6/uL (4.20-5.50); Red Cell Distribution Width 13.4 % (11.0-16.0); White Blood Count 5.9 X10*3/uL (4.8-10.8)
[2025-04-06 10:10] LABS: Alanine Aminotransferase 24 U/L (0-31); Alkaline Phosphatase 57 U/L (39-117); Anion Gap 12 (12-20); Aspartate Amino Transferase 27 U/L (5-31); Bilirubin Total 0.7 mg/dL (0.0-1.0); Blood Urea Nitrogen 21 mg/dL (9-16); Carbon Dioxide 26 mmol/L (22-29); Chloride 105 mmol/L (96-108); Creatinine Clr Calc Pharmacy 55.3; Estimated Glomerular Filt Rate > 60; Glucose Random 110 mg/dL (60-115); Magnesium 2.1 mg/dL (1.6-2.6); Potassium 3.8 mmol/L (3.3-5.1); Sodium 139 mmol/L (135-145); Total Protein 6.7 g/dL (6.5-8.0)
--- NOTE | 2025-04-06 11:20 | PC.NURSE ---
Report received. Taken over care at this time.
[2025-04-06 11:42] VITALS: BP 143/68; PULSE 72; RESP 14; O2SAT 98
[2025-04-06 11:49] VITALS: BP 143/68; PULSE 72; RESP 14; TEMP 36.6; O2SAT 98
== END 2025-04-06 11:50 | disposition home or self-care (01) ==
PROVIDERS: Nurse Practitioner Family; Emergency Provider Emergency Medicine; PCP Internal Medicine
DX: M25.562 Pain in left knee (principal); M79.662 Pain in left lower leg; I10 Essential (primary) hypertension; E78.5 Hyperlipidemia, unspecified; E03.9 Hypothyroidism, unspecified; Z79.82 Long term (current) use of aspirin; Z79.02 Long term (current) use of antithrombotics/antiplatelets; Z79.899 Other long term (current) drug therapy
CPT/HCPCS: 36415; 73564; 80053; 82550; 83735; 85025; 93971; 99284

== ENCOUNTER → 2025-04-06 08:28 | Outpatient (BNV) | payer MEDICARE, SELFPAY | PROVIDERS: Emergency Provider Emergency Medicine; PCP Internal Medicine; Visit Provider Radiology Diagnostic Radiology | DX: M79.662 Pain in left lower leg (principal); M17.12 Unilateral primary osteoarthritis, left knee | CPT/HCPCS: 73564; 93971 ==

== ENCOUNTER 2025-04-17 07:43 | Outpatient (REF) | payer MEDICARE, SELFPAY ==
[2025-04-17 10:28] LABS: Alanine Aminotransferase 25 U/L (0-31); Albumin Level 4.4 g/dL (3.5-5.0); Alkaline Phosphatase 60 U/L (39-117); Anion Gap 13 (12-20); Aspartate Amino Transferase 31 U/L (5-31); Bilirubin Total 1.1 mg/dL (0.0-1.0); Blood Urea Nitrogen 12 mg/dL (9-16); Calcium 9.6 mg/dL (8.4-10.2); Carbon Dioxide 29 mmol/L (22-29); Chloride 104 mmol/L (96-108); Cholesterol 181 mg/dL (<200); Estimated Glomerular Filt Rate > 60; Glucose Fasting 101 mg/dL (60-99); HDL Cholesterol 54 mg/dL (>40); LDL Cholesterol Calculated 99 mg/dL (<100); Potassium 3.5 mmol/L (3.3-5.1); Sodium 142 mmol/L (135-145); Total Protein 7.2 g/dL (6.5-8.0); Triglycerides 140 mg/dL (<150)
[2025-04-17 10:45] LABS: Thyroid Stimulating Hormone 1.84 uIU/mL (0.32-4.0)
== END 2025-04-17 07:44 | disposition home or self-care (01) ==
LOC: HO.10HDL 07:43
PROVIDERS: Visit Provider Internal Medicine
DX: E78.5 Hyperlipidemia, unspecified (principal); E55.9 Vitamin D deficiency, unspecified; E04.2 Nontoxic multinodular goiter; R73.02 Impaired glucose tolerance (oral)
CPT/HCPCS: 36415; 80053; 80061; 82306; 84443

== ENCOUNTER 2025-04-23 15:46 | Outpatient (AMB) | payer MEDICARE, SELFPAY ==
--- NOTE | 2025-04-23 15:49 | A.OFFPC_ITS ---
Vital Signs 04/23/25 15:51 Height 5 ft Weight 129 lb BMI 25.2 BP 120/70 Blood Pressure Location Lt brachial Position Sitting Pulse 71 Pulse Source Pulse Oximeter Pulse Oximetry (%) 97 Oxygen Delivery Method Room Air Intake Visit Reasons: BP Edge Baster Required: No Accompanied by: Self / Same As Patient Allergies acetaminophen [From Percocet] Allergy (Intermediate, Verified 04/23/25 16:14) Vomiting atropine [From Lomotil] Allergy (Intermediate, Verified 04/23/25 16:14) Vomiting codeine [CODEINE] Allergy (Intermediate, Verified 04/23/25 16:14) Nausea and Vomiting diphenoxylate [From Lomotil] Allergy (Intermediate, Verified 04/23/25 16:14) Vomiting erythromycin base Allergy (Intermediate, Verified 04/23/25 16:14) Swelling, Trouble breathing meperidine [From Demerol] Allergy (Intermediate, Verified 04/23/25 16:14) Nausea and Vomiting nabumetone Allergy (Intermediate, Verified 04/23/25 16:14) Unknown oxycodone [From Percocet] Allergy (Intermediate, Verified 04/23/25 16:14) Vomiting Medication List - Last Reconciled 04/23/25 by Lauren Dykes MD ascorbate calcium (vitamin C) 1 g PO Q6H aspirin 81 mg PO DAILY atorvastatin 40 mg PO BEDTIME 90 days hydrochlorothiazide 12.5 mg PO DAILY 90 days levothyroxine 75 mcg PO DAILY multivitamin 1 tab PO DAILY omega-3 fatty acids (Fish Oil Concentrate) 1,000 mg PO DAILY vitamin B complex 1 cap PO DAILY Tobacco use date assessed: 04/23/25 Fall risk assessment: No Falls in past year Last assessed Fall Risk: 04/23/25 Dental Screening Dental Screen Date: 04/23/25 Did you have a dental visit in the last 12 months?: Yes Did you have a dental problem in the last 6 months where you did not have access to dental care?: No Was dental information given to patient?: Patient has dentist HPI HPI Comments History of Present Illness Details The patient is an 79-year-old female presenting with multiple ongoing health concerns for a follow-up visit. She reports her blood pressure is well- controlled. Recent blood work results were reviewed, with findings showing an elevated Vitamin D level, prompting a discussion regarding modification of her Citracal supplementation. Her current medication regimen includes atorvastatin, Hydrochlorothiazide, and levothyroxine. Thyroid ultrasound findings revealed a suspicious hypoechoic nodule with potential calcifications, suggesting concerns for either a thyroid or parathyroid origin. Although advised to see a specialist in [place], the patient opted against this due to her current stable condition. There is concern for how a parathyroid adenoma may impact her bone health. The patient experienced transient leg pain, initiating on a Monday, resulting in an ER visit with an ultrasound negative for vascular issues. The pain resolved by Monday but later a bruise was noted on the foot which resolved spontaneously. The pain is considered possibly related to her known osteoarthritis or spinal issues. [facility] Medical History Vitamin D deficiency Multinodular thyroid Renal calculi Dyslipidemia Hypothyroidism Skin lesion Mass of right foot Essential hypertension Surgical History History of thyroidectomy, subtotal S/P thyroid biopsy History of breast biopsy History of carpal tunnel release History of tonsillectomy History of appendectomy Family History Father Stomach cancer CVD (cardiovascular disease) Mother Leukemia Mental health disorder Brother AIDS Paternal Grandmother Diabetes Brother No problems noted. Brother No problems noted. Son No problems noted. Daughter No problems noted. Social History Housing: House Alcohol intake: current Alcohol intake frequency: a few times a month Alcohol type: hard liquor Patient Tobacco Use Status: Former Tobacco user Tobacco use type: Cigarette e-Cigarette/Vaping Use: Never Used Second Hand Smoke Exposure: No service: No Current occupational status: retired Current occupation: rt hand Cognitive needs: No Hearing needs: No Vision needs: Yes Questionnaire PHQ-9 Over the last 2 weeks, how often have you been bothered by any of the following problems? 1. Little interest or pleasure in doing things: not at all 2. Feeling down, depressed, or hopeless: not at all 3. Trouble falling or staying asleep, or sleeping too much: not at all 4. Feeling tired or having little energy: not at all 5. Poor appetite or overeating: not at all 6. Feeling bad about yourself - or that you are a failure or have let yourself or your family down: not at all 7. Trouble concentrating on things, such as reading the newspaper or watching television: not at all 8. Moving or speaking so slowly that other people could have noticed. Or the opposite - being so fidgety or restless that you have been moving around a lot more than usual: not at all 9. Thoughts that you would be better off or of hurting yourself in some way: not at all Total score: 0 Depression Screening Interpretation: Negative Depression Screening Done: Yes 61453 - PHQ-9 Billing: Yes Source: Developed by Drs. Tre Pfeiffer, Adelaide Michele, Satish Gonzales and colleagues, with an educational eleni from [employer]. Thrive Questionnaire Date Thrive assessed: 04/23/25 I am a: Patient What is your living situation today?: I have a steady place to live Within the past 12 months, did the food you bought not last and you didn't have the money to get more?: Never true Within the past 12 months, did you worry whether your food would run out before you got money to buy more?: Never true Do you have trouble paying for medicines?: No Do you have trouble getting transportation to medical appointments?: No Do you have trouble paying your heating and electricity bill?: No Do you have trouble taking care of your child, family member or friend?: No Do you have trouble with day-to-day activities such as bathing, preparing meals, shopping, managing finances, etc.?: No Are you currently unemployed and looking for a job?: No Are you interested in more education?: No Please select the resources that you would like help with: None Currently or been in a relationship where the following occur: No concerns reported THRIVE Score: 0 AUDIT C Alcohol Use Questionnaire (AUDIT-C) 1. How often do you have a drink containing alcohol?: 2-3 times a week 2. How many drinks containing alcohol do you have on a typical day when you are drinking?: 3 or 4 3. How often do you have six or more drinks on one occasion?: Never Total Score: 4 ROD-7 AMB Questionnaire ROD-7 Date ROD - 7 assessed: 04/23/25 Feeling nervous, anxious, or on edge: 0 = Not at all Not being able to stop or control worryin = Not at all Worrying too much about different things: 0 = Not at all Trouble relaxin = Not at all Being so restless that it is hard to sit still: 0 = Not at all Becoming easily annoyed or irritable: 0 = Not at all Feeling afraid as if something awful might happen: 0 = Not at all Total ROD-7 score (0-4 normal; 5-9 mild; 10-14 moderate; 15-21 severe): 0 Source: Developed by Drs. Tre Pfeiffer, Adelaide Michele, Satish Gonzales and colleagues, with an educational eleni from [employer]. ROD-7 Assessment Billing ROD-7 Assessment Tool: ROD-7 Assessment 44687 Review of Systems Const All systems reviewed & are unremarkable except as noted in HPI and below Card Denies chest pain at rest, Denies chest pain with activity, Denies edema, Denies irregular heart rhythm, Denies claudication, Denies dyspnea, Denies dyspnea on exertion, Denies orthopnea, Denies paroxysmal nocturnal dyspnea and Denies slow heart rate Resp Denies cough, Denies dyspnea and Denies dyspnea on exertion GI Denies abdominal pain, Denies change in bowel habits, Denies excessive flatus, Denies nausea and Denies vomiting Denies urinary incontinence, Denies urinary hesitancy and Denies urinary urgency Musc Denies abnormal gait, Denies atrophy, Denies deformity and Denies limited range of motion Skin/Breast Denies bleeding lesions, Denies changing lesions and Denies rash Neuro Denies abnormal gait, Denies behavioral changes and Denies lack of coordination Psych Denies behavioral changes Physical exam (Primary Care) Vital Signs: Last Vital Signs Pulse 71 04/23/25 15:51 BP 120/70 04/23/25 15:51 Pulse Ox 97 04/23/25 15:51 Oxygen Delivery Method Room Air 04/23/25 15:51 BMI result Body Mass Index 25.2 Tobacco/Smoking Status: Tobacco use Status Tobacco use date assessed 04/23/25 04/23/25 15:57 Patient Tobacco Use Status Former Tobacco user 04/23/25 15:57 Tobacco use type Cigarette 04/23/25 15:57 e-Cigarette/Vaping Use Never Used 04/23/25 15:57 PHQ-9: PHQ-9 Score PHQ-9: Total score 0 04/23/25 16:17 Depression Screening Interpretation: Negative Thrive Assessment: Date of Thrive Assessment Date Thrive assessed 04/23/25 04/23/25 15:57 Currently or been in a relationship where the following occur: No concerns reported Resp Effort & Inspection: normal respiratory effort Auscultation: clear to auscultation bilaterally Cardio Jugular venous distension: no JVD Rate: regular rate Rhythm: regular rhythm Heart sounds: S1 normal heart sound present and S2 normal heart sound present Extrem General: Yes full ROM Coding Level of Care Code Est Pt Level 4 (82686) Complex EM visit Add On G2211 Diagnoses Multinodular thyroid E04.2 Dyslipidemia E78.5 Essential hypertension I10 Acquired hypothyroidism E03.9 Hypothyroidism type: acquired Vitamin D deficiency E55.9 Additional Codes ROD-7 Assessment Billing - ROD-7 Assessment Tool: ROD-7 Assessment 68628 ([id number]) PHQ-9 - 62217 - PHQ-9 Billing: Yes ([id number]) Time Spent (min) 21 Assessment & Plan Assessment & Plan (1) Multinodular thyroid: Code(s): E04.2 - Nontoxic multinodular goiter Category: Medical (2) Dyslipidemia: Code(s): E78.5 - Hyperlipidemia, unspecified Category: Medical (3) Essential hypertension: Code(s): I10 - Essential (primary) hypertension Category: Medical (4) Hypothyroidism: Code(s): E03.9 - Hypothyroidism, unspecified Category: Medical Qualifiers: Hypothyroidism type: acquired Qualified Code(s): E03.9 - Hypothyroidism, unspecified (5) Vitamin D deficiency: Code(s): E55.9 - Vitamin D deficiency, unspecified Category: Medical Plan The patient?s Vitamin D supplementation will be adjusted due to elevated levels. She opted against specialist evaluation for the thyroid nodule, but monitoring for bone health risks linked to parathyroid adenoma is emphasized. We will coordinate with imaging services to perform a bone density test alongside her mammogram scheduled in September. Vaccination status is up to date, with future plans for routine Tdap administration next year. No adjustments are needed for her current medications, and continued routine lab monitoring is indicated. Patient was informed and verbally consented to the use of an ambient scribe for clinic note documentation during this visit. We had a detailed discussion regarding the management of elevated Vitamin D levels and potential impact of a parathyroid adenoma given recent ultrasound findings. Though a specialist referral was suggested, the patient declined, and I emphasized the importance of monitoring for any bone-related symptoms, considering the interaction between parathyroid function and bone health. For her unexplained leg pain and subsequent bruising, no immediate concern was found, and it resolved without intervention, warranting observation primarily. The plan includes altering her Citracal intake and ensuring a bone density test is scheduled for preventative care. I informed her that her vaccination status is current and discussed follow-up requirements for maintaining overall health including lab work to monitor her current conditions effectively. Orders: Orders XR DEXA axial skeleton Today Z78.0 - Asymptomatic menopausal state Thyroid Stimulating Hormone 4 Months E03.9 - Hypothyroidism, unspecified Lipid Panel 4 Months E78.5 - Hyperlipidemia, unspecified Vitamin D 25-OH Total 4 Months E55.9 - Vitamin D deficiency, unspecified Comprehensive [place]. Panel Fast 4 Months I10 - Essential (primary) hypertension Patient Instructions: - Adjust Citracal intake to every third day to manage Vitamin D levels. - Monitor for any new bone pain or symptoms which may indicate changes in bone health. - Schedule and attend bone density test along with the mammogram in September. - Be aware of upcoming vaccination plans, specifically Tdap next year. - Follow usual procedure for quarterly lab work to monitor blood pressure, thyroid function, and general health parameters. - Maintain routine check-ups for osteoarthritis management. - Report any new or concerning symptoms promptly.
--- OUTSIDE RECORDS SUMMARY | 2025-04-23 15:49 | XMS_ITS | Patient Health Record ---
Author Organization [facility] Jono gadiel Young Address [address] [place] [address] Care Team Providers Care Cash Accountant Name Role Phone Gus GARIBAY, Lauren Primary Care Provider Unavail able Henry Jones Unavailable [phone] Allergies Allergen (clinical drug ingredient) Drug/Non Drug [...] Status Risk Notes Problem Acquired hallux valgus ([id number]) Hallux valgus (acquired), left foot (M20.12) Active confirmed Problem Hallux valgus (acquired), right foot (M20.11) Active confirmed Plan Of Treatment Pending Test Test Name Order Date X ray : Foot, right 3V 07/21/2021 Insurance Providers Payer Name Payer Address Payer Phone Subscriber Number Group Number Insured Name Patient Relationship to Insured Coverage Start Date Coverage End Date Medicare National Gov[employer] [address] [place] [address] [id number] Crystal Calderon Self - patient is the insured [place] [address] [address] [address] [place] [address] [id number] Crystal Calderon Self - patient is the insured Medical (General) History Medical History History ICD Code Hypertension Hypothyroidism mass on right foot Skin lesion Dislipidemia Arthritis Back,Hip,and Knee pain Cholesterol Cataracts Headaches/Migraines Sciatica thyroid Measles Chicken pox Surgical History Surgery Date(Month/Year) appendectomy breast biopsy carpal tunnel release thyroidectomy tonsillectomy thyroid biopsy
[2025-04-23 15:51] VITALS: BP 120/70; PULSE 71; O2SAT 97; BMI 25.2
== END 2025-04-23 16:31 | disposition home or self-care (01) ==
LOC: HO.HMCH 15:47
PROVIDERS: PCP Internal Medicine; Visit Provider Internal Medicine
DX: E04.2 Nontoxic multinodular goiter (principal); E78.5 Hyperlipidemia, unspecified; I10 Essential (primary) hypertension; E03.9 Hypothyroidism, unspecified; E55.9 Vitamin D deficiency, unspecified

== ENCOUNTER → 2025-04-23 15:46 | Outpatient (BNVA) | payer MEDICARE, SELFPAY | PROVIDERS: PCP Internal Medicine; Visit Provider Internal Medicine | DX: E04.2 Nontoxic multinodular goiter (principal); E78.5 Hyperlipidemia, unspecified; E03.9 Hypothyroidism, unspecified; I10 Essential (primary) hypertension; E55.9 Vitamin D deficiency, unspecified | CPT/HCPCS: 96127; 99212 ==

== ENCOUNTER 2025-05-06 12:31 | Outpatient (AMB) | payer MEDICARE, SELFPAY ==
--- NOTE | 2025-05-06 12:53 | MHC.OFFVIS ---
Vital Signs 05/06/25 12:54 Height 5 ft Weight 129 lb BMI 25.2 Intake Visit Reasons: OV- RT wrist OA f/u last inj 12/04/24 Intake Note: Crystal is an 79 year old right hand dominant female who presents today for a follow up visit of her right wrist. Hx of aspiration of dorsum ganglion cyst right wrist 12/04/24. Currently states cyst is still there, she is having thumb pain aftre using hand clippers due to over work and her ring finger is locking and is causing discomfort. Allergies acetaminophen [From Percocet] Allergy (Intermediate, Verified 05/06/25 12:57) Vomiting atropine [From Lomotil] Allergy (Intermediate, Verified 05/06/25 12:57) Vomiting codeine [CODEINE] Allergy (Intermediate, Verified 05/06/25 12:57) Nausea and Vomiting diphenoxylate [From Lomotil] Allergy (Intermediate, Verified 05/06/25 12:57) Vomiting erythromycin base Allergy (Intermediate, Verified 05/06/25 12:57) Swelling, Trouble breathing meperidine [From Demerol] Allergy (Intermediate, Verified 05/06/25 12:57) Nausea and Vomiting nabumetone Allergy (Intermediate, Verified 05/06/25 12:57) Unknown oxycodone [From Percocet] Allergy (Intermediate, Verified 05/06/25 12:57) Vomiting HPI HPI OV- RT wrist OA f/u last inj 12/04/24: Details: Crystal is an 79 year old right hand dominant woman who returns with complaints of her right dorsal hand ganglion, S/P aspiration done on 12/04/24. She notes that she still has a mass on the dorsal aspect of her hand associated with 1 of her extensor tendons. He does not think it changed in size following our attempted aspiration. It had been bothering her when she called, but is no longer bothering her. She also complains of new locking of her right ring finger. She says when she called to make this appointment these things were bothering her more, but they have improved recently. She has a Hx of bilateral hand OA. She has a Hx of bilateral carpal tunnel release in the past. She reports normal sensation bilaterally. [facility] Medical History Vitamin D deficiency Multinodular thyroid Renal calculi Dyslipidemia Hypothyroidism Skin lesion Mass of right foot Essential hypertension Surgical History History of thyroidectomy, subtotal S/P thyroid biopsy History of breast biopsy History of carpal tunnel release History of tonsillectomy History of appendectomy Family History Father Stomach cancer CVD (cardiovascular disease) Mother Leukemia Mental health disorder Brother AIDS Paternal Grandmother Diabetes Brother No problems noted. Brother No problems noted. Son No problems noted. Daughter No problems noted. Social History Housing: House Alcohol intake: current Alcohol intake frequency: a few times a month Alcohol type: hard liquor Patient Tobacco Use Status: Former Tobacco user Tobacco use type: Cigarette e-Cigarette/Vaping Use: Never Used Second Hand Smoke Exposure: No service: No Current occupational status: retired Current occupation: rt hand Cognitive needs: No Hearing needs: No Vision needs: Yes Review of Systems Const All systems reviewed & are unremarkable except as noted in HPI and below Physical Exam Vital Signs: BMI result Body Mass Index 25.2 Const General: no acute distress and alert Orientation/consciousness: patient oriented x3 Neuro General: patient oriented x3 Extrem Other: Evaluation of Right Upper Extremity: The patient is alert, oriented, and in no acute distress Neuro: Median, Ulnar, Radial nerves motor and sensory intact and sensation is normal to the tips of all digits Vascular: Cap refill brisk ROM: She can make a fist and extend all her digits Visible & palpable locking & catching of the ring finger No tenderness over the a1 deon There is a mass on the dorsal aspect of her right hand, about the EDC tendon to the index finger. This is mobile with the tendon, and is consistent either with a ganglion or possible tenosynovium about the tendon. It is nontender, it is not bothering her. Psych Appearance: grossly normal Affect: normal affect Attitude: cooperative Assessment & Plan Assessment & Plan (1) Ganglion cyst of volar aspect of right wrist: Code(s): M67.431 - Ganglion, right wrist Category: Medical (2) Mass of right hand: Comment: Dorsal ganglion cyst Code(s): R22.31 - Localized swelling, mass and lump, right upper limb Category: Medical (3) Osteoarthritis of right hand: Code(s): M19.041 - Primary osteoarthritis, right hand Category: Medical (4) Trigger finger, right ring finger: Code(s): M65.341 - Trigger finger, right ring finger Category: Medical Plan Assessment & Plan: 1. Right dorsal hand ganglion, S/P aspiration Date of procedure: 12/04/24 Over the EDC tendon in line with the index finger Mobile with tendons I educated her about these conditions She does not find these particularly painful or bothersome, but the aspiration did not appear to make a difference to her I discussed operative and non-operative treatment options I recommend she gently massage the volar wrist ganglion as this may help it decrease in size. If it does not, or if it becomes bothersome she knows that we can also treat this operatively. If her symptoms worsen we can consider a repeat aspiration vs surgery Otherwise she can follow up prn 2. Right ring finger trigger finger This is a new complaint I educated her about this condition I discussed operative and non-operative treatment options This is not particularly bothersome for her at this time, and she would like to hold off on surgery. She will follow up if her symptoms worsen to discuss treatment options 3. Right volar wrist ganglion In the distal wrist crease, in line with the FCR tendon Measuring ~9mm in diameter No complaints today 4. Bilateral hand OA In multiple PIP & DIP joints No complaints today 5. Left Carpal tunnel syndrome, S/P release DOS: 08/08/22 More normal sensation in the thumb & index fingers, still with reduced, but improved, sensation in the middle finger 6. Left small finger pre-trigger tenosynovitis Tender over the a1 deon No locking or catching at present Previous history of trigger fingers No complaints today 7. Right Carpal tunnel syndrome, S/P release with an outside provider With complete resolution of her symptoms Scribed for Angelia Campbell MD by Ajit Ward medical nurse, on 05/06/25 at 1:10 PM, EST. Coding Level of Care Code Est Pt Level 4 (92083) Diagnoses Ganglion cyst of volar aspect of right wrist M67.431 Mass of right hand R22.31 Osteoarthritis of right hand M19.041 Trigger finger, right ring finger M65.341
[2025-05-06 12:54] VITALS: BMI 25.2
--- OUTSIDE RECORDS SUMMARY | 2025-05-06 14:09 | XMS_ITS | Patient Health Record ---
Author Organization [facility] Jono gadiel Young Address [address] [facility] [address] Care Team Providers Care Comb Fixer Name Role Phone Gus GARIBAY, Lauren Primary Care Provider Unavail able Henry Jones Unavailable [phone] Allergies Allergen (clinical drug ingredient) Drug/Non Drug [...] Status Risk Notes Problem Acquired hallux valgus ([id number]) Hallux valgus (acquired), left foot (M20.12) Active confirmed Problem Acquired hallux valgus (93790642) Hallux valgus (acquired), right foot (M20.11) Active confirmed Plan Of Treatment Pending Test Test Name Order Date X ray : Foot, right 3V 07/21/2021 Insurance Providers Payer Name Payer Address Payer Phone Subscriber Number Group Number Insured Name Patient Relationship to Insured Coverage Start Date Coverage End Date Medicare National Govt Sv[employer] [address] [place] [address] [id number] Crystal Calderon Self - patient is the insured [place] [address] [address] [address] [place] [address] [id number] Crystal Calderon Self - patient is the insured Medical (General) History Medical History History ICD Code Hypertension Hypothyroidism mass on right foot Skin lesion Dislipidemia Arthritis Back,Hip,and Knee pain Cholesterol Cataracts Headaches/Migraines Sciatica thyroid Measles Chicken pox Surgical History Surgery Date(Month/Year) appendectomy breast biopsy carpal tunnel release thyroidectomy tonsillectomy thyroid biopsy
== END 2025-05-06 13:12 | disposition home or self-care (01) ==
LOC: HO.HOS 12:32
PROVIDERS: PCP Internal Medicine; Visit Provider Orthopaedic Surgery
DX: M67.431 Ganglion, right wrist (principal); R22.31 Localized swelling, mass and lump, right upper limb; M19.041 Primary osteoarthritis, right hand; M65.341 Trigger finger, right ring finger
CPT/HCPCS: 99214

== ENCOUNTER → 2025-05-06 12:31 | Outpatient (BNVA) | payer MEDICARE, SELFPAY | PROVIDERS: PCP Internal Medicine; Visit Provider Orthopaedic Surgery | DX: M67.431 Ganglion, right wrist (principal); M19.041 Primary osteoarthritis, right hand; M65.341 Trigger finger, right ring finger; R22.31 Localized swelling, mass and lump, right upper limb | CPT/HCPCS: 99212 ==

== ENCOUNTER 2025-08-21 07:28 | Outpatient (REF) | payer MEDICARE, SELFPAY ==
--- OUTSIDE RECORDS SUMMARY | 2025-08-21 07:31 | XMS_ITS | Patient Health Record ---
Author Organization [facility] Jono gadiel Young Address [address] [facility] [place] [address] Care Team Providers Care Train Brakeman Name Role Phone Gus GARIBAY, Lauren Primary Care Provider Unavail able Henry Jones Unavailable [phone] Allergies Allergen (clinical drug ingredient) Drug/Non Drug [...] capsule in the morning Orally Once a day; Duration: 30 day(s) Not-Taking Atorvastatin Calcium 40 MG 1 tablet Orally Once a day; Duration: 30 day(s) Active Aspirin 81 MG 1 tablet Orally Once a day; Duration: 30 day(s) Active Centrum Silver multivitamin Ac [...] Status Risk Notes Problem Acquired hallux valgus (57250180) Hallux valgus (acquired), left foot (M20.12) Active confirmed Problem Acquired hallux valgus (21940068) Hallux valgus (acquired), right foot (M20.11) Active confirmed Plan Of Treatment Pending Test Test Name Order Date X ray : Foot, right 3V 07/21/2021 Insurance Providers Payer Name Payer Address Payer Phone Subscriber Number Group Number Insured Name Patient Relationship to Insured Coverage Start Date Coverage End Date Medicare National Govt Sv[employer] [address] [place] [address] [id number] Crystal Calderon Self - patient is the insured [place] [address] [address] [address] [place] [address] [id number] Crystal Calderon Self - patient is the insured Medical (General) History Medical History History ICD Code Hypertension Hypothyroidism mass on right foot Skin lesion Dislipidemia Arthritis Back,Hip,and Knee pain Cholesterol Cataracts Headaches/Migraines Sciatica thyroid Measles Chicken pox Surgical History Surgery Date(Month/Year) appendectomy breast biopsy carpal tunnel release thyroidectomy tonsillectomy thyroid biopsy
[2025-08-21 11:04] LABS: Alanine Aminotransferase 27 U/L (0-31); Albumin Level 4.4 g/dL (3.5-5.0); Alkaline Phosphatase 67 U/L (39-117); Anion Gap 12 (12-20); Aspartate Amino Transferase 31 U/L (5-31); Blood Urea Nitrogen 18 mg/dL (9-16); Calcium 9.6 mg/dL (8.4-10.2); Carbon Dioxide 28 mmol/L (22-29); Chloride 104 mmol/L (96-108); Cholesterol 171 mg/dL (<200); Estimated Glomerular Filt Rate > 60; HDL Cholesterol 49 mg/dL (>40); Potassium 3.8 mmol/L (3.3-5.1); Sodium 140 mmol/L (135-145); Total Protein 7.2 g/dL (6.5-8.0); Triglycerides 174 mg/dL (<150)
[2025-08-21 11:31] LABS: Thyroid Stimulating Hormone 1.49 uIU/mL (0.32-4.0)
== END 2025-08-21 07:29 | disposition home or self-care (01) ==
LOC: HO.10HDL 07:28
PROVIDERS: Visit Provider Internal Medicine
DX: I10 Essential (primary) hypertension (principal); E03.9 Hypothyroidism, unspecified; E78.5 Hyperlipidemia, unspecified; E55.9 Vitamin D deficiency, unspecified
CPT/HCPCS: 36415; 80053; 80061; 82306; 84443

== ENCOUNTER 2025-08-25 08:08 | Outpatient (AMB) | payer MEDICARE, SELFPAY ==
--- NOTE | 2025-08-25 08:17 | MHC.PC.OV ---
Vital Signs 08/25/25 08:18 Height 5 ft Weight 131 lb BMI 25.6 BP 110/62 Blood Pressure Location Lt brachial Position Sitting Pulse 60 Pulse Source Pulse Oximeter Temp 96.8 F Temp Source Temporal Artery Scan Pulse Oximetry (%) 100 Oxygen Delivery Method Room Air Intake Visit Reasons: bp Intake Note: Patient is here to follow up on BP. Food Mobile Driver Required: No Medical Authorization Specialist: Not Required per policy Accompanied by: Self / Same As Patient Allergies acetaminophen (From Percocet) Allergy (Intermediate, Verified 08/25/25 08:31) Vomiting atropine (From Lomotil) Allergy (Intermediate, Verified 08/25/25 08:31) Vomiting codeine (CODEINE) Allergy (Intermediate, Verified 08/25/25 08:31) Nausea and Vomiting diphenoxylate (From Lomotil) Allergy (Intermediate, Verified 08/25/25 08:31) Vomiting erythromycin base Allergy (Intermediate, Verified 08/25/25 08:31) Swelling, Trouble breathing meperidine (From Demerol) Allergy (Intermediate, Verified 08/25/25 08:31) Nausea and Vomiting nabumetone Allergy (Intermediate, Verified 08/25/25 08:31) Unknown oxycodone (From Percocet) Allergy (Intermediate, Verified 08/25/25 08:31) Vomiting Medication List - Last Reconciled 08/25/25 by Lauren Dykes MD ascorbate calcium (vitamin C) 1 g PO Q6H aspirin 81 mg PO DAILY atorvastatin 40 mg PO BEDTIME 90 days hydrochlorothiazide 12.5 mg PO DAILY 90 days levothyroxine 75 mcg PO DAILY multivitamin 1 tab PO DAILY omega-3 fatty acids (Fish Oil Concentrate) 1,000 mg PO DAILY vitamin B complex 1 cap PO DAILY Tobacco use date assessed: 08/25/25 Fall risk assessment: No Falls in past year Last assessed Fall Risk: 08/25/25 Dental Screening Dental Screen Date: 04/23/25 HPI HPI Comments History of Present Illness Details The patient is an 79-year-old female presenting with a follow-up for her chronic conditions including hypertension, hypothyroidism, and hyperlipidemia. Her blood pressure is well-controlled, consistently measuring less than 130/80 mmHg, which is within the target range. She is currently taking hydrochlorothiazide 12.5 mg for blood pressure management. The patient has a history of hypothyroidism, for which she is on levothyroxine 75 mcg. Her thyroid function tests are normal, and she underwent a thyroid needle biopsy on August 15, which returned inconclusive results. The patient is also managing hyperlipidemia with atorvastatin 40 mg, and her cholesterol levels are excellent with a total cholesterol of 171 mg/dL and LDL of 88 mg/dL. She maintains a healthy lifestyle, having quit smoking and consuming alcohol only a few times a month. She has multiple medication allergies including Percocet, Lomotil, codeine, erythromycin, Demerol, and Relafen, which cause various adverse reactions such as vomiting and swelling. [facility] Medical History Vitamin D deficiency Multinodular thyroid Renal calculi Dyslipidemia Hypothyroidism Skin lesion Mass of right foot Essential hypertension Surgical History History of thyroidectomy, subtotal S/P thyroid biopsy History of breast biopsy History of carpal tunnel release History of tonsillectomy History of appendectomy Family History Father Stomach cancer CVD (cardiovascular disease) Mother Leukemia Mental health disorder Brother AIDS Paternal Grandmother Diabetes Brother No problems noted. Brother No problems noted. Son No problems noted. Daughter No problems noted. Social History Housing: House Alcohol intake: current Alcohol intake frequency: a few times a month Alcohol type: hard liquor Patient Tobacco Use Status: Former Tobacco user Tobacco use type: Cigarette e-Cigarette/Vaping Use: Never Used Second Hand Smoke Exposure: Yes service: No Current occupational status: retired Current occupation: rt hand Cognitive needs: No Hearing needs: No Vision needs: Yes Questionnaire Thrive Questionnaire Date Thrive assessed: 04/23/25 I am a: Patient What is your living situation today?: I have a steady place to live Within the past 12 months, did the food you bought not last and you didn't have the money to get more?: Never true Within the past 12 months, did you worry whether your food would run out before you got money to buy more?: Never true Do you have trouble paying for medicines?: No Do you have trouble getting transportation to medical appointments?: No Do you have trouble paying your heating and electricity bill?: No Do you have trouble taking care of your child, family member or friend?: No Do you have trouble with day-to-day activities such as bathing, preparing meals, shopping, managing finances, etc.?: No Are you currently unemployed and looking for a job?: No Are you interested in more education?: No Please select the resources that you would like help with: None Currently or been in a relationship where the following occur: No concerns reported THRIVE Score: 0 ROD-7 AMB Questionnaire ROD-7 Date ROD - 7 assessed: 04/23/25 Source: Developed by Drs. Tre Pfeiffer, Adelaide Michele, Satish Gonzales and colleagues, with an educational eleni from [employer]. Review of Systems Const All systems reviewed & are unremarkable except as noted in HPI and below Card Denies chest pain at rest, Denies chest pain with activity, Denies edema, Denies irregular heart rhythm, Denies claudication, Denies dyspnea, Denies dyspnea on exertion, Denies orthopnea, Denies paroxysmal nocturnal dyspnea and Denies slow heart rate Resp Denies cough, Denies dyspnea and Denies dyspnea on exertion Neuro Denies lack of coordination Physical exam (Primary Care) Vital Signs: Last Vital Signs Temp 96.8 F 08/25/25 08:18 Pulse 60 08/25/25 08:18 BP 110/62 08/25/25 08:18 Pulse Ox 100 08/25/25 08:18 Oxygen Delivery Method Room Air 08/25/25 08:18 BMI result Body Mass Index 25.6 Tobacco/Smoking Status: Tobacco use Status Tobacco use date assessed 08/25/25 08/25/25 08:22 Patient Tobacco Use Status Former Tobacco user 08/25/25 08:22 Tobacco use type Cigarette 08/25/25 08:22 e-Cigarette/Vaping Use Never Used 08/25/25 08:22 Thrive Assessment: Date of Thrive Assessment Date Thrive assessed 04/23/25 08/25/25 08:22 Currently or been in a relationship where the following occur: No concerns reported Resp Effort & Inspection: normal respiratory effort Auscultation: clear to auscultation bilaterally Cardio Jugular venous distension: no JVD Rate: regular rate Rhythm: regular rhythm Heart sounds: S1 normal heart sound present and S2 normal heart sound present Extrem General: Yes full ROM Coding Level of Care Code Est Pt Level 3 (63446) Complex EM visit Add On G2211 Diagnoses Essential hypertension I10 Dyslipidemia E78.5 Acquired hypothyroidism E03.9 Hypothyroidism type: acquired Time Spent (min) 21 Assessment & Plan Assessment & Plan (1) Essential hypertension: Code(s): I10 - Essential (primary) hypertension Category: Medical (2) Dyslipidemia: Code(s): E78.5 - Hyperlipidemia, unspecified Category: Medical (3) Hypothyroidism: Code(s): E03.9 - Hypothyroidism, unspecified Category: Medical Qualifiers: Hypothyroidism type: acquired Qualified Code(s): E03.9 - Hypothyroidism, unspecified Plan Plan Patient was informed and verbally consented to the use of an ambient scribe for clinic note documentation during this visit. 1. Essential (primary) hypertension I10 The patient's blood pressure is well-controlled with hydrochlorothiazide 12.5 mg, maintaining readings below 130/80 mmHg. Continued monitoring and adherence to current medication regimen are advised. 2. Hypothyroidism, unspecified E03.9 The patient is on levothyroxine 75 mcg with normal thyroid function tests. A recent thyroid needle biopsy was inconclusive, and further follow-up will depend on additional results. 3. Hyperlipidemia, unspecified E78.5 The patient is managing hyperlipidemia with atorvastatin 40 mg, achieving excellent cholesterol levels. Regular monitoring of lipid levels is recommended.
[2025-08-25 08:18] VITALS: BP 110/62; PULSE 60; TEMP 36; O2SAT 100; BMI 25.6
== END 2025-08-25 08:42 | disposition home or self-care (01) ==
LOC: HO.HMCH 08:09
PROVIDERS: PCP Internal Medicine; Visit Provider Internal Medicine
DX: I10 Essential (primary) hypertension (principal); E78.5 Hyperlipidemia, unspecified; E03.9 Hypothyroidism, unspecified

== ENCOUNTER → 2025-08-25 08:08 | Outpatient (BNVA) | payer MEDICARE, SELFPAY | PROVIDERS: PCP Internal Medicine; Visit Provider Internal Medicine | DX: I10 Essential (primary) hypertension (principal); E03.9 Hypothyroidism, unspecified; E78.5 Hyperlipidemia, unspecified | CPT/HCPCS: 99212 ==

== ENCOUNTER 2025-09-08 14:18 | Outpatient (REF) | payer MEDICARE, SELFPAY | END 2025-09-08 14:19 | disposition home or self-care (01) | LOC: HO.SH 14:18 | PROVIDERS: Visit Provider Internal Medicine | DX: Z01.118 Encounter for examination of ears and hearing with other abnormal findings (principal); H90.3 Sensorineural hearing loss, bilateral | CPT/HCPCS: 92557 ==

== ENCOUNTER 2025-09-30 08:22 | Outpatient (REF) | payer MEDICARE, SELFPAY ==
--- NOTE | ~2025-09-30 | MM_ITS ---
EXAMINATION: DXA BONE DENSITY AXIAL HISTORY: Z78.0 - Asymptomatic menopausal state TECHNIQUE: Upverter Dual energy absorptiometry (DEXA) of the lumbar spine, total left hip, and femoral neck was performed. COMPARISON: Previous exams most recent March 2017 FINDINGS: The bone mineral density of the lumbar spine (L1-L3) is 1.290 g/cm2, corresponding to a T-score of 1, and a Z-score of 3.1. This is indicative of normal bone mineral density. This represents a BMD change of 6.7% compared to the prior exam. The bone mineral density of the left total hip is 0.782 g/cm2, corresponding to a T-score of -1.8, and a Z-score of 0.5. This is indicative of osteopenia. This represents a BMD change of -8.9% compared to the prior exam. This is statistically significant. The bone mineral density of the left femoral neck is 0.810 g/cm2, corresponding to a T-score of -1.6, and a Z-score of 0.7. This is indicative of osteopenia. This represents a BMD change of 0.2% compared to the prior exam. This is not statistically significant. DEXA FRACTURE RISK: The FRAX index suggests a ten year probability of major osteoporotic fracture of 14.4%, and of hip fracture 3.9%. MM/XR DEXA axial skeleton IMPRESSION: Based on bone mineral density, and according to World Health Organization (WHO) criteria, the diagnosis is consistent with osteopenia based on lowest T score of -1.8 in the left total femur. This is decreased from previous exam. Treatment Recommendations: NOF guidelines recommend consideration for treatment in postmenopausal women and men age 50 and older presenting with the following: -A hip or vertebral (clinical or morphometric) fracture. -T-score less than or equal to -2.5 at the femoral neck or spine after appropriate evaluation to exclude secondary causes. -Low bone mass at the hip or spine and a 10-year fracture probability by FRAX of greater than or equal to 3% for hip fracture or greater than or equal to 20% for major osteoporotic fracture based on the [place] adapted WHO algorithm. FUTURE SCAN RECOMMENDATION: People with diagnosed cases of osteoporosis or at high risk for fracture should have regular bone mineral density tests. For patients eligible for Medicare, routine testing is allowed once every 2 years. The testing frequency can be increased to one year for patients who have rapidly progressing disease, those who are receiving or discontinuing medical therapy to restore bone mass, or have additional risk factors. Statistically, 68% of repeat scans fall within 1 SD (+/- 0.010 g/cm2 for AP spine L1-L4) and 1 SD (+/- 0.012 g/cm2 for femur total) FRAX is a trademark of the [employer]'s [place] [facility] Met[employer] Bone Disease, a World Health Organization (WHO) Collaborating Center. Electronically signed by: Abbey Patton MD 09/30/2025 04:17 PM [facility]
--- NOTE | ~2025-09-30 | MM_ITS ---
EXAMINATION: MM SCREENING DIGITAL BREAST TOMOSYNTHESIS, BILATERAL CLINICAL INFORMATION: Screening. Asymptomatic. History of right excisional biopsy. COMPARISON: Comparison made to multiple prior, most recent September 23, 2024, and most remote July 26, 2018. TECHNIQUE: Digital breast tomosynthesis is performed in mediolateral oblique and craniocaudal views along with computer-aided detection (CAD). Synthesized 2D images are generated from the tomosynthesis. FINDINGS: BREAST COMPOSITION: The breasts are heterogeneously dense, which may obscure small masses. RIGHT BREAST: Prior excisional biopsy. No significant masses, suspicious calcifications or other abnormalities are seen. LEFT BREAST: No significant masses, suspicious calcifications or other abnormalities are seen. MM/MM tomosynthesis screening BI IMPRESSION: BILATERAL BREASTS: Benign, no mammographic evidence of malignancy. Normal interval follow-up is recommended in 12 months. ASSESSMENT: BI-RADS: Category 2: Benign RECOMMENDATION: Routine annual mammography screening. FOLLOW-UP: 1 year F/U This examination should not preclude the clinical evaluation of a suspicious palpable abnormality. This patient's information was entered into a reminder system with a target due date for their next mammogram. Electronically signed by: Ca Dutton MD 10/01/2025 08:14 [facility]
--- OUTSIDE RECORDS SUMMARY | 2025-09-30 08:30 | XMS_ITS | Patient Health Record ---
Author Organization [facility] Jono gadiel Young Address [address] [place] [address] Care Team Providers Care Senior Systems Developer Name Role Phone Gus GARIBAY, Lauren Primary Care Provider Unavail able Henry Harkins Unavailable [phone] Allergies Allergen (clinical drug ingredient) Drug/Non Drug [...] Status Risk Notes Problem Acquired hallux valgus (74399025) Hallux valgus (acquired), left foot (M20.12) Active confirmed Problem Acquired hallux valgus (48289714) Hallux valgus (acquired), right foot (M20.11) Active confirmed Plan Of Treatment Pending Test Test Name Order Date X ray : Foot, right 3V 07/21/2021 Insurance Providers Payer Name Payer Address Payer Phone Subscriber Number Group Number Insured Name Patient Relationship to Insured Coverage Start Date Coverage End Date Medicare National [employer] [address] [place] [address] [id number] Crystal Calderon Self - patient is the insured [place] [id number] [address] [address] [place] [address] [id number] Crystal Calderon Self - patient is the insured Medical (General) History Medical History History ICD Code Hypertension Hypothyroidism mass on right foot Skin lesion Dislipidemia Arthritis Back,Hip,and Knee pain Cholesterol Cataracts Headaches/Migraines Sciatica thyroid Measles Chicken pox Surgical History Surgery Date(Month/Year) appendectomy breast biopsy carpal tunnel release thyroidectomy tonsillectomy thyroid biopsy
== END 2025-09-30 08:23 | disposition home or self-care (01) ==
LOC: HO.MAMMO 08:22
PROVIDERS: PCP Internal Medicine; Visit Provider Internal Medicine
DX: Z12.31 Encounter for screening mammogram for malignant neoplasm of breast (principal); Z13.820 Encounter for screening for osteoporosis; Z78.0 Asymptomatic menopausal state
CPT/HCPCS: 77063; 77067; 77080

== ENCOUNTER → 2025-09-30 08:45 | Outpatient (BNV) | payer MEDICARE, SELFPAY | PROVIDERS: PCP Internal Medicine; Visit Provider Radiology Diagnostic Radiology | DX: Z12.31 Encounter for screening mammogram for malignant neoplasm of breast (principal) | CPT/HCPCS: 77063; 77067; 77080 ==